=== PATIENT | male | born 1950 | race Caucasian/White ===

== ENCOUNTER 2023-03-03 22:44 | Inpatient (IN) ==
[2023-03-03 23:03] VITALS: BMI 36.5
--- NOTE | 2023-03-03 23:08 | DR.SOBA ---
HPI Time Seen Time Seen by Provider: 03/03/23 23:07 Primary Care Physician Primary Care Physician: SILVINA Complaints Chief Complaint Doctors Comments: Patient has COPD and states that he has been coughing up yellow sputum for several months. Patient has been feeling sob for 3 days and has had a headache.He went to the [facility] house for coffee and became acutely sob.He was given a neb treatment by ems. Patient has chronic lesions and swelling in his legs.30 yrs ago he dropped a piece of steel on his RLE and is supposed to see A vascular surgeon in [place]. Patient's physician Dr Daly referred him to Dr Cartagena in [place] (an orthopedic surgeon) who has referred patient to a vascular surgeon. Patient denies: chest pain,back pain,abdl pain,n ,v. Chief Complaint:: PT IN ED VIA STRETCHER PER [facility] WITH C/O SHORTNESS OF BREATH. PER PT AND , PT HAS A HX OF COPD AND HIS BREATHING HAS GRADUALLY BEEN GETTING WORSE OVER THE PAST COUPLE OF WEEKS. PT STARTED ON OZEMPIC TODAY AND MOWED GRASS TODAY. COVID-19 Coronavirus risk:travel/contact w/high risk person: No Has patient experienced Coronavirus symptoms: No Source History Provided: Patient and Family Member Mode of Arrival Mode of Arrival: Stretcher Timing Onset of Chief Complaint: 03/03/23 PMH PMH Past Medical History: Yes Past Medical History: COPD, Diabetes and Dyslipidemia Past Surgical History: Yes Surgical History: Ortho Surgery Past Surgical History Comment: LEFT HIP BILATERAL CATARACT Family History History of Family Medical Conditions: Yes Family Medical History: Diabetes Mellitus, Cancer, OR, Coronary Artery Disease, Heart Failure and Hypertension Social History Does patient currently use any type of tobacco product: No Have you used tobacco products in the last 12 months: No Type of Tobacco Use: None Does any household member use tobacco: No Alcohol Use: None Do you use any recreational Drugs:: No Lives With: Spouse Lives Where: Home Travel Risk Coronavirus risk:travel/contact w/high risk person: No Has patient experienced Coronavirus symptoms: No Infectious screening In the last 2 months have you had wt loss of >10#?: NO Have you had fever, night sweats or hemotysis?: No Have you traveled outside the country in the last 6 months?: No Isolation: Standard ROS Review of Systems Constitutional: negative Chills, Diaphoresis or Fever Eyes: No Symptoms Reported ENTM: No Symptoms Reported Respiratoy: Productive Cough (yellow sputum x several months) and Short of Breath; negative Wheezing Cardiovascular: No Symptoms Reported and Edema (Chronic in bilateral lower extremities and stasis ulcers BLE) Gastrointestinal/Abdominal: No Symptoms Reported Genitourinary: No Symptoms Reported Neurological: No Symptoms Reported Musculoskeletal: No Symptoms Reported Integumentary: No Symptoms Reported and Lesions (BLE Venous Stasis with ulcerated lesions ) Hematologic/Lymphatic: No Symptoms Reported Endocrine: No Symptoms Reported Psychiatric: No Symptoms Reported All Other Systems: Reviewed and Negative PE Vital Signs Vitals: Temperature 98.4 F Pulse Rate 86 Respiratory Rate 24 Blood Pressure [Right Arm] 143/70 Blood Pressure 199/89 O2 Sat by Pulse Oximetry 97 General Limitations: No Limitations General Appearance: Alert and In No Apparent Distress Head Head Exam: Normal Inspection Eyes Eye exam: Normal Appearance ENT ENT Exam: Normal Exam Neck Neck Exam: Normal Inspection Chest Chest Inspection: Normal Inspection Respiratory Respiratory Exam: negative Normal Lung Sounds Bilat (diminished BS diffusely) Respiratory Exam: Bilateral: Decreased Breath Sounds Cardiovascular Cardiovascular Exam: Regular Rate and Normal Rhythm Abdominal Exam Abdominal Exam: Normal Inspection, Normal Bowel Sounds and Soft Extremities Extremities Exam: Edema (Changes c/w venous stasis BLE) Back Back Exam: Normal Inspection Neurologic Neurological Exam: Alert and Oriented X3 Psychiatric Psychiatric Exam: Normal Affect and Normal Mood Skin Skin Exam: Warm, Dry, Intact and Normal Color MDM Differential Diagnosis Differential Diagnosis: CHF, COPD, Dysrhythmia, Mycardial Infarction and Pneumonia COURSE Treatment Treatment: Patient was brought to a monitored room and IV access was initiated.Patient's ABG Ph 7.4/PC02 53/P02 49/HC03 34.4 (RA). He was placed on a venturi mask at 30% current 02 sat is 97%. Patient received: duonebs x 2( 1st in the field/2nd in the ED), solumderol 125mg iv.Patient's CXR did not reveal an acute proccess but he will be given levaquin 750mg iv in the ED x 1 dose for his cough productive of yellow sputum. Patient has stasis ulcers on his BLE clindamycin ,doxycycline, and gabapentin. Wound cultures are pending.Discussed case with Dr Hairston who will admit patient to his service. Patient's EKG and troponin were negative for acute ischemia. ROR Labs Reviewed Laboratory Results Reviewed?: Yes Result Diagrams: 03/08/23 05:23 03/08/23 05:23 Laboratory: 03/03/23 23:40 Blood Blood Culture - Final 03/03/23 23:30 Blood Blood Culture - Final 03/04/23 02:00 Leg - Right Wound Gram Stain - Final 03/04/23 02:00 Leg - Right Wound Culture - Final Staphylococcus Aureus WBC 6.9 X10^3/uL (3.6-10.0) 03/03/23 23:30 RBC 4.29 X10^6/uL (4.7-6.0) L 03/03/23 23:30 Hgb 13.0 g/dL (13.5-18.0) L 03/03/23 23:30 Hct 38.2 % (42.0-54.0) L 03/03/23 23:30 MCV 89.0 fL (80.0-100.0) 03/03/23 23: MCH 30.3 pg (27.0-34.0) 03/03/23 23: MCHC 34.1 g/dL (33.0-35.0) 03/03/23 23:30 RDW 14.0 % (11.6-16.5) 03/03/23 23:30 Plt Count 133 X10^3/uL (150.0-450.0) L 03/03/23 23:30 MPV 8.7 fL (7.4-11.0) 03/03/23 23:30 Neut % (Auto) 81.9 % (42.0-75.0) H 03/03/23 23:30 Lymph % (Auto) 8.8 % (21.0-51.0) L 03/03/23 23:30 Ness % (Auto) 6.0 % (0.0-13.0) 03/03/23 23:30 Eos % (Auto) 2.9 % (0.9-2.9) 03/03/23 23:30 Baso % (Auto) 0.4 % (0.2-1.0) 03/03/23 23:30 Neut # (Auto) 5.6 x10^3/uL (2.2-4.8) H 03/03/23 23:30 Lymph # (Auto) 0.6 X10^3/uL (1.3-2.9) L 03/03/23 23:30 Ness # (Auto) 0.4 x10^3/uL (0.3-0.8) 03/03/23 23:30 Eos # (Auto) 0.2 x10^3/uL (0.0-0.2) 03/03/23 23:30 Baso # (Auto) 0.0 X10^3/uL (0.0-0.1) 03/03/23 23:30 Absolute Nucleated RBC 0.1 /100WBC 03/03/23 23:30 Sample Site R brachial 03/03/23 23:39 ABG pH 7.420 (7.35-7.45) 03/03/23 23:39 ABG pCO2 53.0 mmHg (35.0-45.0) H* 03/03/23 23:39 ABG pO2 49.0 mmHg (80.0-100.0) L* 03/03/23 23:39 ABG HCO3 34.4 mmol/L (22-26) H* 03/03/23 23:39 ABG O2 Saturation 85.0 % (90-100) L 03/03/23 23:39 ABG Base Excess 8.4 mmol/L (-2.0-2.0) H 03/03/23 23:39 Troy Test N/a 03/03/23 23:39 A-a Gradient 34.0 mmHg 03/03/23 23:39 FiO2 21.0 03/03/23 23:39 Blood Gas Comments Yodit well 03/03/23 23:39 Sodium 143 mmol/L (136-145) 03/03/23 23:30 Corrected Sodium 144 mmol/L (136-145) 03/03/23 23:30 Potassium 4.0 mmol/L (3.5-5.1) 03/03/23 23:30 Chloride 103 mmol/L (98-107) 03/03/23 23:30 Carbon Dioxide 35.6 mmol/L (21-32) H 03/03/23 23:30 BUN 33 mg/dL (7-18) H 03/03/23 23:30 Creatinine 1.39 mg/dL (0.70-1.30) H 03/03/23 23:30 Est GFR (MDRD) Af Amer > 60 (>60) 03/03/23 23:30 Est GFR (MDRD) Non-Af 53 (>60) L 03/03/23 23:30 Glucose 144 mg/dL (65-99) H 03/03/23 23:30 Lactic Acid 0.6 mmol/L (0.4-2.0) 03/03/23 23:30 Calcium 9.2 mg/dL (8.5-10.1) 03/03/23 23: Corrected Calcium TNP 03/03/23 23:30 Total Bilirubin 0.70 mg/dL (0.2-1.0) 03/03/23 23:30 AST 23 Units/L (15-37) 03/03/23 23:30 ALT 26 Units/L (12-78) 03/03/23 23:30 Alkaline Phosphatase 98 Units/L (46-116) 03/03/23 23: Creatine Kinase 118 Units/L (39-308) 03/03/23 23: Troponin I High Sens 27.1 ng/L (4.0-60.0) 03/03/23 23:30 C-Reactive Protein 14.10 mg/L (0-3.0) H 03/03/23 23:30 B-Natriuretic Peptide 63.5 pg/mL (0-79) 03/03/23 23: Total Protein 7.4 g/dL (6.4-8.2) 03/03/23 23:30 Albumin 3.6 g/dL (3.4-5.0) 03/03/23: Globulin 3.8 g/dL (2.5-4.5) 03/03/23 23:30 Albumin/Globulin Ratio 0.9 Ratio (1.1-2.1) L 03/03/23 23:30 XRAY XRAY Interpreted by: Self X-ray Results: CXR: hyperinflation,no acute cardiopulmonary process EKG Compared to prior EKG Dated: 03/03/23 Rate: 66 Rhythm: Afib and PVCs Opioid Opioid Risk Tool Age ([place] box if 16-45): No History of Preadolescent Sexual Abuse: No Total: 0 Total Score Risk Category: Low Risk Copyright: Sheldon GARCIA predicting aberrant behaviors Discharge Plan Diagnosis Discharge Problem: Hypoxemia, COPD exacerbation, Venous stasis of both lower extremities Discharge Plan Patient Disposition: ADMITTED INPATIENT Condition: Stable
[2023-03-03] MEDS ORDERED: CATAPRES TAB 0.1 MG PO ONE (23:19)
[2023-03-03] MEDS ORDERED: DUONEB 0.5 MG/3 MG (3 mL) NEB ONE (23:19)
[2023-03-03] MEDS ORDERED: SOLU-Medrol 125 MG VIAL IVP ONE (23:19)
[2023-03-03] MEDS ORDERED: SOLU-Medrol 125 MG VIAL ONE (23:39)
[2023-03-03] MEDS ORDERED: CATAPRES TAB 0.1 MG ONE (23:39)
[2023-03-03 23:43] LABS: ABG BASE EXCESS 8.4 mmol/L (-2.0-2.0)
[2023-03-03 23:46] LABS: ABG HCO3 34.4 mmol/L (22-26)
[2023-03-03 23:59] LABS: BASOPHILS % (AUTO) 0.4 % (0.2-1.0); EOSINOPHILS # (AUTO) 0.2 x10^3/uL (0.0-0.2); EOSINOPHILS % (AUTO) 2.9 % (0.9-2.9); HEMATOCRIT 38.2 % (42.0-54.0); LYMPHOCYTES # (AUTO) 0.6 X10^3/uL (1.3-2.9); LYMPHOCYTES % (AUTO) 8.8 % (21.0-51.0); MEAN CORPUSCULAR HEMOGLOBIN 30.3 pg (27.0-34.0); MEAN CORPUSCULAR HGB CONC 34.1 g/dL (33.0-35.0); MEAN PLATELET VOLUME 8.7 fL (7.4-11.0); MONOCYTES # (AUTO) 0.4 x10^3/uL (0.3-0.8); NEUTROPHILS # (AUTO) 5.6 x10^3/uL (2.2-4.8); NEUTROPHILS % (AUTO) 81.9 % (42.0-75.0); RED BLOOD COUNT 4.29 X10^6/uL (4.7-6.0); WHITE BLOOD COUNT 6.9 X10^3/uL (3.6-10.0)
--- NOTE | 2023-03-04 | EKG ---
Test Reason : sob Blood Pressure : */* mmHG Vent. Rate : 66 BPM Atrial Rate : * BPM P-R Int : * ms QRS Dur : 90 ms QT Int : 392 ms P-R-T Axes : * 19 59 degrees QTc Int : 410 ms Atrial flutter with premature ventricular or aberrantly conducted complexes Abnormal ECG No previous ECGs available Confirmed by Luis E Olson ([id number]) on 03/04/2023 10:26:33 AM Referred By: Confirmed By: Luis E Olson
[2023-03-04] MEDS ORDERED: DUONEB 0.5 MG/3 MG (3 mL) NEB ONE (00:02)
[2023-03-04 00:11] LABS: ALANINE AMINOTRANSFERASE 26 Units/L (12-78); ALBUMIN 3.6 g/dL (3.4-5.0); ALKALINE PHOSPHATASE 98 Units/L (46-116); ASPARTATE AMINO TRANSFERASE 23 Units/L (15-37); BLOOD UREA NITROGEN 33 mg/dL (7-18); CALCIUM 9.2 mg/dL (8.5-10.1); CARBON DIOXIDE 35.6 mmol/L (21-32); CHLORIDE 103 mmol/L (98-107); COR NA(FOR HYPERGLY) 144 mmol/L (136-145); CREATINE KINASE 118 Units/L (39-308); CREATININE 1.39 mg/dL (0.70-1.30); LACTIC ACID 0.6 mmol/L (0.4-2.0); SODIUM 143 mmol/L (136-145); TOTAL PROTEIN 7.4 g/dL (6.4-8.2); eGFR NON BLACK RACES 53 (>60)
[2023-03-04] MEDS ORDERED: LEVAQUIN PREMIX IV 750 MG 750 MG/150 ML BAG IV ONE ×2 (02:06→02:14)
[2023-03-04] MEDS ORDERED: PROVENTIL NEB TX 0.083% 2.5MG/ 3ML NEB PRN ×2 (04:05→06:15)
[2023-03-04] MEDS ORDERED: IPRATROPIUM INH PRN (04:19)
[2023-03-04] MEDS ORDERED: DUONEB 0.5 MG/3 MG (3 mL) NEB PRN (04:19)
[2023-03-04] MEDS ORDERED: CLINDAMYCIN HCL 300 MG PO SCH (04:19)
[2023-03-04] MEDS ORDERED: ALBUTEROL INH PRN (04:19)
[2023-03-04] MEDS ORDERED: HYDROCODONE ACETAMINOPHEN PO PRN (04:19)
--- NOTE | 2023-03-04 06:03 | EKG ---
Test Reason : sob Blood Pressure : */* mmHG Vent. Rate : 71 BPM Atrial Rate : 71 BPM P-R Int : 150 ms QRS Dur : 86 ms QT Int : 410 ms P-R-T Axes : 75 39 69 degrees QTc Int : 445 ms Suspicious for atrial flutter with variable block Otherwise normal ECG Confirmed by Luis E Olson ([id number]) on 03/04/2023 10:25:55 AM Referred By: Confirmed By: Luis E Olson
[2023-03-04] MEDS: SOLU-Medrol 125 MG VIAL IVP SCH ×3 (06:12→21:03)
[2023-03-04 06:42] LABS: BASOPHILS % (AUTO) 0.3 % (0.2-1.0); EOSINOPHILS % (AUTO) 0.3 % (0.9-2.9); HEMATOCRIT 38.7 % (42.0-54.0); HEMOGLOBIN 13.1 g/dL (13.5-18.0); LYMPHOCYTES # (AUTO) 0.2 X10^3/uL (1.3-2.9); LYMPHOCYTES % (AUTO) 2.8 % (21.0-51.0); MEAN CORPUSCULAR HEMOGLOBIN 30.3 pg (27.0-34.0); MEAN CORPUSCULAR HGB CONC 33.8 g/dL (33.0-35.0); MEAN CORPUSCULAR VOLUME 89.8 fL (80.0-100.0); MEAN PLATELET VOLUME 9.1 fL (7.4-11.0); MONOCYTES # (AUTO) 0.1 x10^3/uL (0.3-0.8); MONOCYTES % (AUTO) 1.1 % (0.0-13.0); NEUTROPHILS # (AUTO) 6.6 x10^3/uL (2.2-4.8); NEUTROPHILS % (AUTO) 95.5 % (42.0-75.0); RED BLOOD COUNT 4.31 X10^6/uL (4.7-6.0); RED CELL DISTRIBUTION WIDTH 13.7 % (11.6-16.5); WHITE BLOOD COUNT 6.9 X10^3/uL (3.6-10.0)
[2023-03-04 06:55] LABS: ALANINE AMINOTRANSFERASE 25 Units/L (12-78); ALBUMIN 3.2 g/dL (3.4-5.0); ALKALINE PHOSPHATASE 95 Units/L (46-116); ASPARTATE AMINO TRANSFERASE 21 Units/L (15-37); BLOOD UREA NITROGEN 31 mg/dL (7-18); CALCIUM 8.9 mg/dL (8.5-10.1); CARBON DIOXIDE 33.2 mmol/L (21-32); CHLORIDE 100 mmol/L (98-107); COR CA(FOR HYPOALB) 9.5 mg/dL (8.5-10.1); COR NA(FOR HYPERGLY) 144 mmol/L (136-145); CREATINE KINASE 116 Units/L (39-308); SODIUM 140 mmol/L (136-145); TOTAL PROTEIN 7.2 g/dL (6.4-8.2); eGFR NON BLACK RACES 58 (>60)
[2023-03-04 07:08] LABS: BILIRUBIN,URINE NEGATIVE (NEGATIVE); BLOOD/HEMOGLOBIN,URINE 4+ (NEGATIVE); GLUCOSE, URINE 3+ (NEGATIVE); KETONES,URINE 3+ (NEGATIVE); LEUKOCYTE ESTERASE ,URINE NEGATIVE (NEGATIVE); NITRITES,URINE NEGATIVE (NEGATIVE); PROTEIN,URINE 3+ (NEGATIVE); UROBILINOGEN,URINE NORMAL (NORMAL)
[2023-03-04 07:11] LABS: APPEARANCE,URINE CLEAR (CLEAR); BACTERIA,URINE NEGATIVE /HPF (NEGATIVE); COLOR,URINE YELLOW (YELLOW); SQUAMOUS EPITHELIAL CELL,UR RARE /HPF (NEGATIVE)
[2023-03-04 07:25] LABS: BAND NEUTROPHILS % 8 % (0-10); BASOPHILS % (MANUAL) 1 % (0-1)
[2023-03-04 07:26] LABS: PLATELET MORPHOLOGY COMMENT NORMAL (NORMAL)
--- NOTE | 2023-03-04 07:33 | RAD ---
HISTORYShortness of breathSTUDYChest AP portableCOMPARISONNone availableFINDINGSHeart is enlarged. No congestive heart failure is noted. Aorta is calcified. Lungs are mildly hyperinflated but free of acute infiltrates. No pleural effusions or pneumothoraces identified. Bony thorax is unremarkable.IMPRESSIONCardiomegaly without congestive heart failureLungs hyperinflated but clear.Electronically signed by: LUPE CONTI (Mar 04, 2023 07:32:22)
[2023-03-04] MEDS ORDERED: PROVENTIL NEB TX 0.083% 2.5MG/ 3ML ONE (07:54)
[2023-03-04] MEDS ORDERED: Atrovent NEB TX 0.02% ONE (07:54)
[2023-03-04] MEDS ORDERED: PULMICORT NEB TX 0.5 MG NEB ONE (07:54)
[2023-03-04] MEDS: Atrovent NEB TX 0.02% NEB SCH ×4 (08:24→21:00)
[2023-03-04] MEDS: PROVENTIL NEB TX 0.083% 2.5MG/ 3ML NEB SCH ×4 (08:24→21:00)
[2023-03-04] MEDS: PULMICORT NEB TX 0.5 MG NEB SCH ×2 (08:24→21:00)
[2023-03-04] MEDS ORDERED: SITAGLIPTIN PHOSPHATE 50 MG PO SCH (09:00)
[2023-03-04] MEDS ORDERED: ASPIRIN EC 81 MG PO SCH (09:00)
[2023-03-04] MEDS ORDERED: CLEOCIN PO SCH (09:00)
[2023-03-04] MEDS ORDERED: TIOTROPIUM BROMIDE IN SCH (09:00)
[2023-03-04] MEDS ORDERED: [UNRECOGNIZED DRUG - OTHER] IN SCH (09:00)
[2023-03-04] MEDS ORDERED: VIBRAMYCIN PO SCH (09:00)
[2023-03-04] MEDS ORDERED: SPIRIVA HANDIHALER (30 DOSE) IN SCH (09:00)
[2023-03-04] MEDS ORDERED: BUDESONIDE FORMOTEROL IN SCH (09:00)
[2023-03-04] MEDS: NEURONTIN CAP 400 MG PO SCH ×3 (09:00→09:12)
[2023-03-04] MEDS: ACTOS PO SCH (09:01)
[2023-03-04] MEDS: JANUVIA PO SCH (09:02)
[2023-03-04] MEDS: IRBESARTAN PO SCH (09:04)
[2023-03-04] MEDS: [UNRECOGNIZED DRUG - OTHER] PO SCH (09:04)
[2023-03-04] MEDS: HYDROCHLOROTHIAZIDE PO SCH (09:04)
[2023-03-04] MEDS ORDERED: NS 100 ML IV 100 ML ONE (11:08)
[2023-03-04] MEDS: ZOSYN VIAL 3.375 GRAMS 3.375 G in NS 100 ML IV 100 ML IV SCH ×3 (11:10→21:17)
[2023-03-04] MEDS: NovoLIN R (or HumuLIN R) SUBCUT PRN ×3 (11:23→20:34)
--- NOTE | 2023-03-04 11:57 | EKG ---
Test Reason : sob Blood Pressure : */* mmHG Vent. Rate : 73 BPM Atrial Rate : * BPM P-R Int : * ms QRS Dur : 86 ms QT Int : 418 ms P-R-T Axes : * 39 81 degrees QTc Int : 460 ms Atrial fibrillation Abnormal ECG When compared with ECG of 04-MAR-2023 05:30, Previous ECG has undetermined rhythm, needs review Confirmed by Luis E Olson ([id number]) on 03/06/2023 2:28:04 PM Referred By: Confirmed By: Luis E Olson
[2023-03-04] MEDS ORDERED: FIORICET TAB PO PRN (16:57)
[2023-03-04] MEDS: SNACK - Diabetic Appropriate PO SCH (20:40)
[2023-03-04] MEDS: AMARYL TAB 4 MG PO SCH (20:59)
[2023-03-04] MEDS: ZOCOR TAB 40 MG PO SCH (20:59)
[2023-03-04] MEDS: LASIX PO PRN (20:59)
[2023-03-04] MEDS ORDERED: GLIMEPIRIDE 4 MG PO SCH (21:00)
[2023-03-04] MEDS ORDERED: SIMVASTATIN 20 MG PO SCH (21:00)
--- NOTE | 2023-03-04 22:55 | DR.H&P ---
H&P - History & Physical for Day of: H&P Date: 03/04/23 - Chief Complaint Chief Complaint: COUGH, SOB - History of Present Illness History of Present Illness: IS A 73 YEAR OLD PATIENT OF OURS. HE PRESENTED TO THE ER VIA EMS WITH COMPLAINTS OF PRODUCTIVE COUGH, SHORTNESS OF BREATH, AND HEADACHE X 3 DAYS. HE DENIES CHEST PAIN, BACK PAIN, ABDOMINAL PAIN, OR NAUSEA AND VOMITING. HE HAS A PMH OF HTN, COPD, DM II, DYSLIPIDEMIA, LEFT HIP REPLACEMENT, AND BILATERAL CATARACT SURGERY. HE ADMITS TO STARTING OZEMPIC TODAY. ON EMS ARRIVAL, THEY ADMINISTERED A NEBULIZER TREATMENT. ON ARRIVAL TO THE ER, HIS VITALS WERE 98.4-89-24-100%-146/88. HE WAS PLACED ON A NON- REBREATHER AT 100%. LABS WERE OBTAINED. WBC 6.9, RBC 4.29, HGB 13, HCT 38.2, PLT COUNT 133, SODIUM 143, POTASSIUM 4.0, CHLORIDE 103, CARBON DIOXIDE 35.6, BUN 33, CREATININE 1.39, GLUCOSE 144, LACTIC ACID 0.6, CALCIUM 9.2, TOTAL BILI 0.70, AST 23, ALT 26, ALK PHOS 98, CREATINE KINASE 118, TROPONIN 27.1, CRP 14.10, BNP 63.5, TOTAL PROTEIN 7.4, ALBUMIN 3.6, GLOBULIN 3.8. URINALYSIS WAS OBTAINED AND REVEALED: WBC 0-2, RBC 10-20, BACTERIA NEGATIVE, LEUKOCYTES NEGATIVE. AN ABG WAS OBTAINED AND REVEALED: PH 7.420, PC02 53, P02 49, HC03 34.4, 02 SATURATION 85, BASE EXCESS 8.4, A-A GRADIENT 34, FI02 21.0. A CHEST XRAY WAS OBTAINED AND REVEALED: Heart is enlarged. No congestive heart failure is noted. Aorta is calcified. Lungs are mildly hyperinflated but free of acute infiltrates. No pleural effusions or pneumothoraces identified. Bony thorax is unremarkable. EKG REVEALED: ATRIAL FLUTTER WITH PVCs. HR 66. IN THE ER, HE WAS GIVEN CATAPRES 0.1MG, SOLU-MEDROL 125MG IV X 1 DOSE, DUONEB X 1, AND LEVAQUIN 750MG IV X 1. HE WAS ADMITTED TO THE HOSPITAL INPATIENT STATUS FOR FURTHER EVALUATION AND TREATMENT OF COPD WITH ACUTE BRONCHITIS, RESPIRATORY FAILURE WITH HYPERCAPNIA AND HYPOXIA, SHORTNESS OF BREATH, DM II, HTN, AND DYSLIPIDEMIA. HE WAS STARTED ON ZOSYN 3.375G IV TID, LEVAQUIN 750MG IV DAILY, SOLU-MEDROL 80MG IV Q8H, PROVENTIL NEBS Q4H, PULMICORT NEBS BID, ATROVENT NEBS Q4H, OTBS ACHS, HUMULIN R SLIDING SCALE, FIORICET 1 TAB PO Q6H PRN, ECOTRIN 81MG HS, LASIX 20MG PO DAILY PRN, NEURONTIN 400MG DAILY, AMARYL 4MG HS, ACTOS 30MG DAILY, SIMVASTATIN 40MG HS, JANUVIA 100MG DAILY. OTHERWISE, WE PLAN TO FOLLOW-UP WITH AM LABS AND CHEST XRAY AND CONTINUE TO MONITOR. TIME SPENT ON CLINICAL ASSESSMENT, REVIEWING LABS AND IMAGING, DECISION MAKING, AND DOCUMENTATION GREATER THAN 75 MINUTES. - Past Medical History Past Medical History: Dyslipidemia, Diabetes, COPD - Past Surgical History Surgical History: Ortho Surgery - Family History Family Medical History: Diabetes Mellitus, Cancer, [place], Hypertension - Social History Does patient currently use any type of tobacco product: No Have you used tobacco products in the last 12 months: No Type of Tobacco Use: None Does any household member use tobacco: No Alcohol Use: None Drug Use: None - Medications Home Medications: No Known Drug Allergies Allergy (Verified 11/28/18 02:16) CONTINUE taking the following medications fluticasone fur. 100 mcg-umeclid 62.5 mcg-vilant 25 mcg inhalat.powder (Trelegy Ellipta) 1 inh inhalation QDAY 03/04/23 [History] furosemide 20 mg tablet 20 mg PO QHS 03/04/23 [History] ipratropium 20 mcg-albuterol 100 mcg/actuation mist for inhalation (Combivent Respimat) 1 spray inhalation QD-BID 03/04/23 [History] irbesartan 150 mg-hydrochlorothiazide 12.5 mg tablet 1 tab PO QDAY 03/04/23 [History] meloxicam 15 mg tablet 15 mg PO QDAY 03/04/23 [History] mupirocin 2 % topical ointment 1 applic topical BID-TID 03/04/23 [History] pioglitazone 30 mg tablet 30 mg PO QDAY 03/04/23 [History] semaglutide 0.25 mg or 0.5 mg (2 mg/1.5 mL) subcutaneous pen injector (Ozempic) 1 ea subcut WEEKLY 03/04/23 [History] simvastatin 40 mg tablet 40 mg PO QPM 03/04/23 [History] - Review of Systems Constitutional: Weakness Eyes: No Symptoms Reported ENT: No Symptoms Reported Respiratory: Cough, Shortness of Breath, SOB with Excertion, Wheezing Cardiovascular: No Symptoms Reported Gastrointestinal: No Symptoms Reported Genitourinary: No Symptoms Reported Musculoskeletal: No Symptoms Reported Skin: No Symptoms Reported Neurological: Weakness - Physical Exam Vital Signs: Temperature 98.0 F Pulse Rate [Left] 68 Pulse Rate 68 Respiratory Rate 18 Blood Pressure [Right Arm] 145/72 Blood Pressure 189/67 O2 Sat by Pulse Oximetry 96 Oriented: Normal Eyes: Normal Ear: Normal Nose: Normal Throat: Normal Respiratory: Wheezes Throughout Cardiovascular: Normal : Normal Auscultation: Bowel Sounds: Normal Palpation: Normal Tenderness: Normal Skin: Normal Musculoskeletal: Normal Psychiatric: Normal Mood Description: Calm Affect: Normal Speech Pattern: Clear - Assessment/Plan (1) COPD exacerbation Status: Acute Plan: ADMIT, ZOSYN 3.375G IV TID, LEVAQUIN 750MG IV DAILY, SOLU-MEDROL 80MG IV Q8H, PROVENTIL NEBS Q4H, PULMICORT NEBS BID, ATROVENT NEBS Q4H, OTBS ACHS, HUMULIN R SLIDING SCALE, FIORICET 1 TAB PO Q6H PRN, ECOTRIN 81MG HS, LASIX 20MG PO DAILY PRN, NEURONTIN 400MG DAILY, AMARYL 4MG HS, ACTOS 30MG DAILY, SIMVASTATIN 40MG HS, JANUVIA 100MG DAILY. (2) Acute bronchitis Qualifiers: Bronchitis organism: unspecified organism Qualified Code(s): J20.9 - Acute bronchitis, unspecified Status: Acute (3) Respiratory failure with hypoxia and hypercapnia Qualifiers: Chronicity: acute Qualified Code(s): J96.01 - Acute respiratory failure with hypoxia; J96.02 - Acute respiratory failure with hypercapnia; J96.02 - Ac [place] respiratory failure with hypercapnia Status: Acute (4) Hyperlipidemia Qualifiers: Hyperlipidemia type: mixed hyperlipidemia Qualified Code(s): E78.2 - Mixed hyperlipidemia Status: Chronic (5) Diabetes mellitus Qualifiers: Diabetes mellitus type: type 2 Diabetes mellitus snf insulin use: with snf use Diabetes mellitus complication status: with other specified complication Qualified Code(s): E11.69 - Type 2 diabetes mellitus with other specified complication; Z79.4 - shelter (current) use of insulin Status: Chronic (6) Hypertension Qualifiers: Hypertension type: primary hypertension Qualified Code(s): I10 - Essential (primary) hypertension Status: Chronic - Allergies Allergies/Adverse Reactions: Allergies Allergy/AdvReac Type Severity Reaction Status Date / Time No Known Drug Allergies Allergy Verified 11/28/18 02:16
[2023-03-05] MEDS: Atrovent NEB TX 0.02% NEB SCH ×6 (01:00→21:00)
[2023-03-05] MEDS: PROVENTIL NEB TX 0.083% 2.5MG/ 3ML NEB SCH ×6 (01:00→21:00)
[2023-03-05] MEDS: LEVAQUIN PREMIX IV 750 MG 750 MG/150 ML BAG IV SCH (01:24)
[2023-03-05] MEDS: SOLU-Medrol 125 MG VIAL IVP SCH ×2 (05:28→20:27)
[2023-03-05] MEDS: ZOSYN VIAL 3.375 GRAMS 3.375 G in NS 100 ML IV 100 ML IV SCH ×3 (05:29→21:33)
[2023-03-05] MEDS: NovoLIN R (or HumuLIN R) SUBCUT PRN ×3 (05:40→20:29)
[2023-03-05 05:52] LABS: BASOPHILS % (AUTO) 0 % (0.2-1.0); HEMATOCRIT 35.1 % (42.0-54.0); HEMOGLOBIN 11.8 g/dL (13.5-18.0); LYMPHOCYTES # (AUTO) 0.3 X10^3/uL (1.3-2.9); LYMPHOCYTES % (AUTO) 2.2 % (21.0-51.0); MEAN CORPUSCULAR HGB CONC 33.7 g/dL (33.0-35.0); MEAN CORPUSCULAR VOLUME 89.1 fL (80.0-100.0); MONOCYTES # (AUTO) 0.4 x10^3/uL (0.3-0.8); MONOCYTES % (AUTO) 2.9 % (0.0-13.0); NEUTROPHILS # (AUTO) 13.2 x10^3/uL (2.2-4.8); NEUTROPHILS % (AUTO) 94.9 % (42.0-75.0); RED BLOOD COUNT 3.94 X10^6/uL (4.7-6.0); RED CELL DISTRIBUTION WIDTH 13.9 % (11.6-16.5); WHITE BLOOD COUNT 13.9 X10^3/uL (3.6-10.0)
[2023-03-05 06:05] LABS: ALBUMIN 2.9 g/dL (3.4-5.0); CALCIUM 8.4 mg/dL (8.5-10.1); CARBON DIOXIDE 32.8 mmol/L (21-32); COR CA(FOR HYPOALB) 9.3 mg/dL (8.5-10.1); CREATININE 2.12 mg/dL (0.70-1.30); TOTAL PROTEIN 6.5 g/dL (6.4-8.2)
[2023-03-05 06:18] LABS: PLATELET MORPHOLOGY COMMENT NORMAL (NORMAL)
[2023-03-05] MEDS: PULMICORT NEB TX 0.5 MG NEB SCH ×2 (08:54→21:00)
[2023-03-05] MEDS: HYDROCHLOROTHIAZIDE PO SCH (10:12)
[2023-03-05] MEDS: ACTOS PO SCH (10:12)
[2023-03-05] MEDS: [UNRECOGNIZED DRUG - OTHER] PO SCH (10:12)
[2023-03-05] MEDS: IRBESARTAN PO SCH (10:12)
[2023-03-05] MEDS: NEURONTIN CAP 400 MG PO SCH (10:13)
[2023-03-05] MEDS: JANUVIA PO SCH (10:13)
--- NOTE | 2023-03-05 11:12 | PCM.PROG ---
Progress Note Progress Note for Day of Date of Exam: 03/05/23 Subjective Subjective: Patient seen at bedside, no acute events overnight. He is currently on 3L NC. He reports some SOB with exertion. He also has chronic leg edema with non-healing ulcers. He has been admitted for acute respiratory failure due to bronchitis and leg wound. Labs/imaging: Hgb 11.8 WBC 13.8 BUN/Cr 54/2.12 Resp panel pending CXR: cardiomegaly Leg wound Cx: staph coag + Plan: continue IV Zosyn and Levaquin. Wean O2 as tolerated. Follow pending cultures. Continue wound care. Advised to keep legs elevated. Will decrease solumedrol. Continue home medications, will hold irbesartan-hctz due to TANA. Monitor BP. Monitor AM labs/imaging. Past Medical Family Social History Allergies: Allergies No Known Drug Allergies Allergy (Verified 11/28/18 02:16) Vital Signs and I&O's Vital Signs: Temperature 97.7 F Pulse Rate [Left] 52 Pulse Rate 68 Respiratory Rate 18 Blood Pressure [Right Arm] 114/53 Blood Pressure 189/67 O2 Sat by Pulse Oximetry 86 Intake and Output: Intake & Output 03/02/23 03/03/23 03/04/23 03/05/23 23:59 23:59 23:59 23:59 Intake Total 353 / 353 464 / 464 Output Total 100 / 100 Balance 253 / 253 464 / 464 Physical Exam Oriented: Normal Eyes: Normal Ear: Normal Nose: Normal Throat: Normal Respiratory: Generalized and Diminished Cardiovascular: Normal Auscultation: Bowel Sounds: Normal Tenderness: Normal Skin: Other (b/l LE chronic venous stasis with ulcers, some open blisters, b/l erythema noted ) Musculoskeletal: Leg Psychiatric: Normal Mood Description: Calm Affect: Normal Speech Pattern: Clear and Appropriate Laboratory and Diagnostics Result Diagrams: 03/05/23 05:26 03/05/23 05:26 Labs: 03/04/23 02:00 Leg - Right Wound Gram Stain - Final 03/04/23 02:00 Leg - Right Wound Culture - Preliminary Laboratory WBC 13.9 X10^3/uL (3.6-10.0) H 03/05/23 05:26 RBC 3.94 X10^6/uL (4.7-6.0) L 03/05/23 05:26 Hgb 11.8 g/dL (13.5-18.0) L 03/05/23 05:26 Hct 35.1 % (42.0-54.0) L 03/05/23 05:26 MCV 89.1 fL (80.0-100.0) 03/05/23 05:26 MCH 30.0 pg (27.0-34.0) 03/05/23 05:26 MCHC 33.7 g/dL (33.0-35.0) 03/05/23 05:26 RDW 13.9 % (11.6-16.5) 03/05/23 05:26 Plt Count 145 X10^3/uL (150.0-450.0) L 03/05/23 05:26 Plt Count Comment Decreased (ADEQUATE) 03/05/23 05:26 MPV 9.0 fL (7.4-11.0) 03/05/23 05:26 Neut % (Auto) 94.9 % (42.0-75.0) H 03/05/23 05:26 Lymph % (Auto) 2.2 % (21.0-51.0) L 03/05/23 05:26 Edwards % (Auto) 2.9 % (0.0-13.0) 03/05/23 05:26 Eos % (Auto) 0.0 % (0.9-2.9) L 03/05/23 05:26 Baso % (Auto) 0 % (0.2-1.0) L 03/05/23 05:26 Neut # (Auto) 13.2 x10^3/uL (2.2-4.8) H 03/05/23 05:26 Lymph # (Auto) 0.3 X10^3/uL (1.3-2.9) L 03/05/23 05:26 Edwards # (Auto) 0.4 x10^3/uL (0.3-0.8) 03/05/23 05:26 Eos # (Auto) 0.0 x10^3/uL (0.0-0.2) 03/05/23 05:26 Baso # (Auto) 0.0 X10^3/uL (0.0-0.1) 03/05/23 05:26 Absolute Nucleated RBC 0.0 /100WBC 03/05/23 05:26 Total Counted 100 03/05/23 05:26 Neutrophils % (Manual) 96 % (39-76) H 03/05/23 05:26 Band Neutrophils % 8 % (0-10) 03/04/23 05:20 Lymphocytes % (Manual) 2 % (13-43) L 03/05/23 05:26 Monocytes % (Manual) 2 % (4-9) L 03/05/23 05:26 Eosinophils % (Manual) 1 % (0-6) 03/04/23 05:20 Basophils % (Manual) 1 % (0-1) 03/04/23 05:20 Plt Morphology Comment Normal (NORMAL) 03/05/23 05:26 RBC Morphology Normal (NORMAL) 03/05/23 05:26 Sample Site R brachial 03/03/23 23:39 ABG pH 7.420 (7.35-7.45) 03/03/23 23:39 ABG pCO2 53.0 mmHg (35.0-45.0) H* 03/03/23 23:39 ABG pO2 49.0 mmHg (80.0-100.0) L* 03/03/23 23:39 ABG HCO3 34.4 mmol/L (22-26) H* 03/03/23 23:39 ABG O2 Saturation 85.0 % (90-100) L 03/03/23 23:39 ABG Base Excess 8.4 mmol/L (-2.0-2.0) H 03/03/23 23:39 Troy Test N/a 03/03/23 23:39 A-a Gradient 34.0 mmHg 03/03/23 23:39 FiO2 21.0 03/03/23 23:39 Blood Gas Comments Yodit well 03/03/23 23:39 Sodium 138 mmol/L (136-145) 03/05/23 05:26 Corrected Sodium 144 mmol/L (136-145) 03/05/23 05:26 Potassium 4.4 mmol/L (3.5-5.1) 03/05/23 05:26 Chloride 100 mmol/L (98-107) 03/05/23 05:26 Carbon Dioxide 32.8 mmol/L (21-32) H 03/05/23 05:26 BUN 54 mg/dL (7-18) H 03/05/23 05:26 Creatinine 2.12 mg/dL (0.70-1.30) H 03/05/23 05:26 Est GFR (MDRD) Af Amer 40 (>60) L 03/05/23 05:26 Est GFR (MDRD) Non-Af 33 (>60) L 03/05/23 05:26 Glucose 350 mg/dL (65-99) H 03/05/23 05:26 POC Glucose (mg/dL) 324 mg/dL (65-99) H 03/05/23 05:36 Lactic Acid 0.6 mmol/L (0.4-2.0) 03/03/23 23:30 Calcium 8.4 mg/dL (8.5-10.1) L 03/05/23 05:26 Corrected Calcium 9.3 mg/dL (8.5-10.1) 03/05/23 05:26 Total Bilirubin 0.30 mg/dL (0.2-1.0) 03/05/23 05:26 AST 17 Units/L (15-37) 03/05/23 05:26 ALT 21 Units/L (12-78) 03/05/23 05:26 Alkaline Phosphatase 80 Units/L (46-116) 03/05/23 05:26 Creatine Kinase 116 Units/L (39-308) 03/04/23 05:20 Troponin I High Sens 27.5 ng/L (4.0-60.0) 03/04/23 05:20 C-Reactive Protein 14.10 mg/L (0-3.0) H 03/03/23 23:30 B-Natriuretic Peptide 63.5 pg/mL (0-79) 03/03/23 23:30 Total Protein 6.5 g/dL (6.4-8.2) 03/05/23 05:26 Albumin 2.9 g/dL (3.4-5.0) L 03/05/23 05:26 Globulin 3.6 g/dL (2.5-4.5) 03/05/23 05:26 Albumin/Globulin Ratio 0.8 Ratio (1.1-2.1) L 03/05/23 05:26 Specimen Type Clean catch urine 03/04/23 06:20 Urine Color Yellow (YELLOW) 03/04/23 06:20 Urine Appearance Clear (CLEAR) 03/04/23 06:20 Urine pH 6.0 (5.0 - 8.0) 03/04/23 06:20 Ur Specific [place] 1.020 (1.000-1.030) 03/04/23 06:20 Urine Protein 3+ (NEGATIVE) 03/04/23 06:20 Urine Glucose (UA) 3+ (NEGATIVE) 03/04/23 06:20 Urine Ketones 3+ (NEGATIVE) 03/04/23 06:20 Urine Blood 4+ (NEGATIVE) 03/04/23 06:20 Urine Nitrite Negative (NEGATIVE) 03/04/23 06:20 Urine Bilirubin Negative (NEGATIVE) 03/04/23 06:20 Urine Urobilinogen Normal (NORMAL) 03/04/23 06:20 Ur Leukocyte Esterase Negative (NEGATIVE) 03/04/23 06:20 Urine RBC 10-20 /HPF (0-3) A 03/04/23 06:20 Urine WBC 0-2 /HPF (0-5) 03/04/23 06:20 Ur Squamous Epith Cells Rare /HPF (NEGATIVE) 03/04/23 06:20 Urine Bacteria Negative /HPF (NEGATIVE) 03/04/23 06:20 Ur Culture Indicated? No/not indicated 03/04/23 06:20 Plan (1) COPD exacerbation: Status: Acute (2) Acute bronchitis: Status: Acute Qualifiers: Bronchitis organism: unspecified organism Qualified Code(s): J20.9 - Acute bronchitis, unspecified (3) Cellulitis of leg, right: Status: Acute (4) Respiratory failure with hypoxia and hypercapnia: Status: Acute Qualifiers: Chronicity: acute Qualified Code(s): J96.01 - Acute respiratory failure with hypoxia; J96.02 - Acute respiratory failure with hypercapnia; J96.02 - Acute respiratory failure with hypercapnia (5) Hyperlipidemia: Status: Chronic Qualifiers: Hyperlipidemia type: mixed hyperlipidemia Qualified Code(s): E78.2 - Mixed hyperlipidemia (6) Diabetes mellitus: Status: Chronic Qualifiers: Diabetes mellitus complication status: with other specified complication Diabetes mellitus jail insulin use: with terminal superintendent use Diabetes mellitus type: type 2 Qualified Code(s): E11.69 - Type 2 diabetes mellitus with other specified complication; Z79.4 - exterminator (current) use of insulin (7) Hypertension: Status: Chronic Qualifiers: Hypertension type: primary hypertension Qualified Code(s): I10 - Essential (primary) hypertension
[2023-03-05] MEDS: ASPIRIN EC 81 MG PO SCH (20:22)
[2023-03-05] MEDS: ZOCOR TAB 40 MG PO SCH (20:22)
[2023-03-05] MEDS: AMARYL TAB 4 MG PO SCH (20:23)
[2023-03-05] MEDS: SNACK - Diabetic Appropriate PO SCH (21:33)
[2023-03-06] MEDS: PROVENTIL NEB TX 0.083% 2.5MG/ 3ML NEB SCH ×6 (01:15→20:16)
[2023-03-06] MEDS: Atrovent NEB TX 0.02% NEB SCH ×6 (01:15→20:15)
[2023-03-06] MEDS: LEVAQUIN PREMIX IV 750 MG 750 MG/150 ML BAG IV SCH (02:32)
[2023-03-06] MEDS: ZOSYN VIAL 3.375 GRAMS 3.375 G in NS 100 ML IV 100 ML IV SCH (05:30)
[2023-03-06 06:28] LABS: BASOPHILS % (AUTO) 0.1 % (0.2-1.0); HEMATOCRIT 35.7 % (42.0-54.0); LYMPHOCYTES # (AUTO) 0.2 X10^3/uL (1.3-2.9); LYMPHOCYTES % (AUTO) 1.4 % (21.0-51.0); MEAN CORPUSCULAR HEMOGLOBIN 30.1 pg (27.0-34.0); MEAN CORPUSCULAR HGB CONC 33.5 g/dL (33.0-35.0); MEAN CORPUSCULAR VOLUME 89.9 fL (80.0-100.0); MEAN PLATELET VOLUME 9.2 fL (7.4-11.0); MONOCYTES # (AUTO) 0.4 x10^3/uL (0.3-0.8); MONOCYTES % (AUTO) 2.7 % (0.0-13.0); NEUTROPHILS # (AUTO) 12.6 x10^3/uL (2.2-4.8); NEUTROPHILS % (AUTO) 95.8 % (42.0-75.0); RED BLOOD COUNT 3.97 X10^6/uL (4.7-6.0); RED CELL DISTRIBUTION WIDTH 13.9 % (11.6-16.5); WHITE BLOOD COUNT 13.1 X10^3/uL (3.6-10.0)
[2023-03-06 06:41] LABS: CREATININE 2.8 mg/dL (0.70-1.30)
[2023-03-06 06:49] LABS: PLATELET MORPHOLOGY COMMENT NORMAL (NORMAL)
[2023-03-06] MEDS: JANUVIA PO SCH (08:34)
[2023-03-06] MEDS: NEURONTIN CAP 400 MG PO SCH (08:34)
[2023-03-06] MEDS: SOLU-Medrol 125 MG VIAL IVP SCH (08:34)
[2023-03-06] MEDS: ACTOS PO SCH (08:34)
[2023-03-06] MEDS: PULMICORT NEB TX 0.5 MG NEB SCH ×2 (09:12→20:16)
[2023-03-06] MEDS: VIBRAMYCIN 100 MG in D5W 250 ML IV 250 ML IV SCH ×2 (10:57→20:52)
[2023-03-06] MEDS: MILK OF MAGNESIA PO SCH (10:57)
[2023-03-06] MEDS: NS 1,000 ML IV 1,000 ML IV SCH (11:30)
[2023-03-06] MEDS: NovoLIN R (or HumuLIN R) SUBCUT PRN ×3 (11:32→21:02)
--- NOTE | 2023-03-06 11:40 | PCM.PROG ---
Progress Note Progress Note for Day of Date of Exam: 03/06/23 Subjective Subjective: Patient seen at bedside, no acute events overnight. He is currently on 2L NC. He reports not feeling as short of breath with exertion. He also has chronic leg edema with non-healing ulcers. He has been admitted for acute respiratory failure due to bronchitis and leg wound. Labs/imaging: Hgb 12 BUN/Cr 76/2.80 Resp panel pending Leg wound Cx: Staph Plan: Both Zosyn + Levaquin resistant, will switch to Doxycycline. Start NS at 75cc/hr. Taper solumedrol. Wean O2 as tolerated. CXR pending. Continue wound care. Advised to keep legs elevated. Continue home medications, will hold irbesartan-hctz due to TANA. Monitor BP. Monitor AM labs/imaging. Past Medical Family Social History Allergies: Allergies No Known Drug Allergies Allergy (Verified 11/28/18 02:16) Vital Signs and I&O's Vital Signs: Temperature 97.9 F Pulse Rate [Left] 80 Pulse Rate 69 Respiratory Rate 20 Blood Pressure [Right Arm] 112/58 Blood Pressure 189/67 O2 Sat by Pulse Oximetry 97 Intake and Output: Intake & Output 03/03/23 03/04/23 03/05/23 03/06/23 23:59 23:59 23:59 23:59 Intake Total 353 / 353 1284 / 1284 240 / 240 Output Total 100 / 100 300 / 300 Balance 253 / 253 984 / 984 240 / 240 Physical Exam Oriented: Normal Eyes: Normal Ear: Normal Nose: Normal Throat: Normal Respiratory: Generalized and Diminished Cardiovascular: Normal Auscultation: Bowel Sounds: Normal Tenderness: Normal Skin: Other (b/l LE chronic venous stasis with ulcers, some open blisters, b/l erythema noted ) Musculoskeletal: Leg Psychiatric: Normal Mood Description: Calm Affect: Normal Speech Pattern: Clear and Appropriate Laboratory and Diagnostics Result Diagrams: 03/06/23 05:25 03/06/23 05:25 Labs: 03/04/23 02:00 Leg - Right Wound Gram Stain - Final 03/04/23 02:00 Leg - Right Wound Culture - Preliminary Staphylococcus Aureus 03/03/23 23:40 Blood Blood Culture - Preliminary 03/03/23 23:30 Blood Blood Culture - Preliminary Laboratory WBC 13.1 X10^3/uL (3.6-10.0) H 03/06/23 05:25 RBC 3.97 X10^6/uL (4.7-6.0) L 03/06/23 05:25 Hgb 12.0 g/dL (13.5-18.0) L 03/06/23 05:25 Hct 35.7 % (42.0-54.0) L 03/06/23 05:25 MCV 89.9 fL (80.0-100.0) 03/06/23 05:25 MCH 30.1 pg (27.0-34.0) 03/06/23 05:25 MCHC 33.5 g/dL (33.0-35.0) 03/06/23 05:25 RDW 13.9 % (11.6-16.5) 03/06/23 05:25 Plt Count 134 X10^3/uL (150.0-450.0) L 03/06/23 05:25 Plt Count Comment Decreased (ADEQUATE) 03/06/23 05:25 MPV 9.2 fL (7.4-11.0) 03/06/23 05:25 Neut % (Auto) 95.8 % (42.0-75.0) H 03/06/23 05:25 Lymph % (Auto) 1.4 % (21.0-51.0) L 03/06/23 05:25 [place] % (Auto) 2.7 % (0.0-13.0) 03/06/23 05:25 Eos % (Auto) 0.0 % (0.9-2.9) L 03/06/23 05:25 Baso % (Auto) 0.1 % (0.2-1.0) L 03/06/23 05:25 Neut # (Auto) 12.6 x10^3/uL (2.2-4.8) H 03/06/23 05:25 Lymph # (Auto) 0.2 X10^3/uL (1.3-2.9) L 03/06/23 05:25 [place] # (Auto) 0.4 x10^3/uL (0.3-0.8) 03/06/23 05:25 Eos # (Auto) 0.0 x10^3/uL (0.0-0.2) 03/06/23 05:25 Baso # (Auto) 0.0 X10^3/uL (0.0-0.1) 03/06/23 05:25 Absolute Nucleated RBC 0.0 /100WBC 03/06/23 05:25 Total Counted 100 03/06/23 05:25 Neutrophils % (Manual) 97 % (39-76) H 03/06/23 05:25 Band Neutrophils % 8 % (0-10) 03/04/23 05:20 Lymphocytes % (Manual) 1 % (13-43) L 03/06/23 05:25 Monocytes % (Manual) 2 % (4-9) L 03/06/23 05:25 Eosinophils % (Manual) 1 % (0-6) 03/04/23 05:20 Basophils % (Manual) 1 % (0-1) 03/04/23 05:20 Plt Morphology Comment Normal (NORMAL) 03/06/23 05:25 RBC Morphology Normal (NORMAL) 03/06/23 05:25 Sample Site R brachial 03/03/23 23:39 ABG pH 7.420 (7.35-7.45) 03/03/23 23:39 ABG pCO2 53.0 mmHg (35.0-45.0) H* 03/03/23 23:39 ABG pO2 49.0 mmHg (80.0-100.0) L* 03/03/23 23:39 ABG HCO3 34.4 mmol/L (22-26) H* 03/03/23 23:39 ABG O2 Saturation 85.0 % (90-100) L 03/03/23 23:39 ABG Base Excess 8.4 mmol/L (-2.0-2.0) H 03/03/23 23:39 [place] Test N/a 03/03/23 23:39 A-a Gradient 34.0 mmHg 03/03/23 23:39 FiO2 21.0 03/03/23 23:39 Blood Gas Comments Yodit well 03/03/23 23:39 Sodium 137 mmol/L (136-145) 03/06/23 05:25 Corrected Sodium 143 mmol/L (136-145) 03/06/23 05:25 Potassium 4.7 mmol/L (3.5-5.1) 03/06/23 05:25 Chloride 99 mmol/L (98-107) 03/06/23 05:25 Carbon Dioxide 31.0 mmol/L (21-32) 03/06/23 05:25 BUN 76 mg/dL (7-18) H 03/06/23 05:25 Creatinine 2.80 mg/dL (0.70-1.30) H 03/06/23 05:25 Est GFR (MDRD) Af Amer 29 (>60) L 03/06/23 05:25 Est GFR (MDRD) Non-Af 24 (>60) L 03/06/23 05:25 Glucose 357 mg/dL (65-99) H 03/06/23 05:25 POC Glucose (mg/dL) 229 mg/dL (65-99) H 03/06/23 11:04 Lactic Acid 0.6 mmol/L (0.4-2.0) 03/03/23 23:30 Calcium 8.0 mg/dL (8.5-10.1) L 03/06/23 05:25 Corrected Calcium 9.3 mg/dL (8.5-10.1) 03/05/23 05:26 Total Bilirubin 0.30 mg/dL (0.2-1.0) 03/05/23 05:26 AST 17 Units/L (15-37) 03/05/23 05:26 ALT 21 Units/L (12-78) 03/05/23 05:26 Alkaline Phosphatase 80 Units/L (46-116) 03/05/23 05:26 Creatine Kinase 116 Units/L (39-308) 03/04/23 05:20 Troponin I High Sens 27.5 ng/L (4.0-60.0) 03/04/23 05:20 C-Reactive Protein 14.10 mg/L (0-3.0) H 03/03/23 23:30 B-Natriuretic Peptide 63.5 pg/mL (0-79) 03/03/23 23:30 Total Protein 6.5 g/dL (6.4-8.2) 03/05/23 05:26 Albumin 2.9 g/dL (3.4-5.0) L 03/05/23 05:26 Globulin 3.6 g/dL (2.5-4.5) 03/05/23 05:26 Albumin/Globulin Ratio 0.8 Ratio (1.1-2.1) L 03/05/23 05:26 Specimen Type Clean catch urine 03/04/23 06:20 Urine Color Yellow (YELLOW) 03/04/23 06:20 Urine Appearance Clear (CLEAR) 03/04/23 06:20 Urine pH 6.0 (5.0 - 8.0) 03/04/23 06:20 Ur Specific [place] 1.020 (1.000-1.030) 03/04/23 06:20 Urine Protein 3+ (NEGATIVE) 03/04/23 06:20 Urine Glucose (UA) 3+ (NEGATIVE) 03/04/23 06:20 Urine Ketones 3+ (NEGATIVE) 03/04/23 06:20 Urine Blood 4+ (NEGATIVE) 03/04/23 06:20 Urine Nitrite Negative (NEGATIVE) 03/04/23 06:20 Urine Bilirubin Negative (NEGATIVE) 03/04/23 06:20 Urine Urobilinogen Normal (NORMAL) 03/04/23 06:20 Ur Leukocyte Esterase Negative (NEGATIVE) 03/04/23 06:20 Urine RBC 10-20 /HPF (0-3) A 03/04/23 06:20 Urine WBC 0-2 /HPF (0-5) 03/04/23 06:20 Ur Squamous Epith Cells Rare /HPF (NEGATIVE) 03/04/23 06:20 Urine Bacteria Negative /HPF (NEGATIVE) 03/04/23 06:20 Ur Culture Indicated? No/not indicated 03/04/23 06:20 Plan (1) TANA (acute kidney injury): Status: Acute (2) COPD exacerbation: Status: Acute (3) Acute bronchitis: Status: Acute Qualifiers: Bronchitis organism: unspecified organism Qualified Code(s): J20.9 - Acute bronchitis, unspecified (4) Cellulitis of leg, right: Status: Acute (5) Respiratory failure with hypoxia and hypercapnia: Status: Acute Qualifiers: Chronicity: acute Qualified Code(s): J96.01 - Acute respiratory failure with hypoxia; J96.02 - Acute respiratory failure with hypercapnia; J96.02 - Acute respiratory failure with hypercapnia (6) Hyperlipidemia: Status: Chronic Qualifiers: Hyperlipidemia type: mixed hyperlipidemia Qualified Code(s): E78.2 - Mixed hyperlipidemia (7) Diabetes mellitus: Status: Chronic Qualifiers: Diabetes mellitus complication status: with other specified complication Diabetes mellitus intermediate accountant insulin use: with intermediate accountant use Diabetes mellitus type: type 2 Qualified Code(s): E11.69 - Type 2 diabetes mellitus with other specified complication; Z79.4 - terminal gauger supervisor (current) use of insulin (8) Hypertension: Status: Chronic Qualifiers: Hypertension type: primary hypertension Qualified Code(s): I10 - Essent ial (primary) hypertension
[2023-03-06] MEDS: AMARYL TAB 4 MG PO SCH (20:57)
[2023-03-06] MEDS: ZOCOR TAB 40 MG PO SCH (20:57)
[2023-03-06] MEDS: ASPIRIN EC 81 MG PO SCH (20:58)
[2023-03-06] MEDS: SNACK - Diabetic Appropriate PO SCH (20:59)
[2023-03-07] MEDS: Atrovent NEB TX 0.02% NEB SCH ×3 (01:14→08:08)
[2023-03-07] MEDS: PROVENTIL NEB TX 0.083% 2.5MG/ 3ML NEB SCH ×3 (01:14→08:08)
[2023-03-07] MEDS ORDERED: PROVENTIL NEB TX 0.083% 2.5MG/ 3ML ONE (05:31)
[2023-03-07] MEDS: NS 1,000 ML IV 1,000 ML IV SCH ×5 (05:33→20:41)
[2023-03-07 06:15] LABS: BASOPHILS % (AUTO) 0.1 % (0.2-1.0); EOSINOPHILS % (AUTO) 0.1 % (0.9-2.9); HEMOGLOBIN 12.6 g/dL (13.5-18.0); LYMPHOCYTES # (AUTO) 0.5 X10^3/uL (1.3-2.9); LYMPHOCYTES % (AUTO) 4.2 % (21.0-51.0); MEAN CORPUSCULAR HEMOGLOBIN 29.9 pg (27.0-34.0); MEAN CORPUSCULAR HGB CONC 33.3 g/dL (33.0-35.0); MEAN CORPUSCULAR VOLUME 89.8 fL (80.0-100.0); MEAN PLATELET VOLUME 8.8 fL (7.4-11.0); MONOCYTES # (AUTO) 0.8 x10^3/uL (0.3-0.8); MONOCYTES % (AUTO) 6.4 % (0.0-13.0); NEUTROPHILS % (AUTO) 89.2 % (42.0-75.0); RED BLOOD COUNT 4.23 X10^6/uL (4.7-6.0); RED CELL DISTRIBUTION WIDTH 14.2 % (11.6-16.5); WHITE BLOOD COUNT 12.4 X10^3/uL (3.6-10.0)
[2023-03-07 06:24] LABS: BLOOD UREA NITROGEN 74 mg/dL (7-18); CARBON DIOXIDE 33.3 mmol/L (21-32); CHLORIDE 103 mmol/L (98-107); CREATININE 2.24 mg/dL (0.70-1.30); SODIUM 141 mmol/L (136-145); eGFR NON BLACK RACES 31 (>60)
[2023-03-07] MEDS: PULMICORT NEB TX 0.5 MG NEB SCH ×3 (08:04→20:12)
[2023-03-07] MEDS: VIBRAMYCIN 100 MG in D5W 250 ML IV 250 ML IV SCH ×2 (08:49→20:36)
[2023-03-07] MEDS: MILK OF MAGNESIA PO SCH (08:50)
[2023-03-07] MEDS: NEURONTIN CAP 400 MG PO SCH (08:50)
[2023-03-07] MEDS: ACTOS PO SCH (08:50)
[2023-03-07] MEDS: LASIX PO PRN (08:50)
--- NOTE | 2023-03-07 08:51 | RAD ---
HISTORYHYPOXIASTUDYCHEST, 1 [id number]/06/2023FINDINGSThe lungs are clear. No pneumothorax or significant effusion.Heart size is normal.Bones are unremarkable.IMPRESSION1. No significant abnormalityElectronically signed by: Zack Suarez (Mar 07, 2023 08:50:05)
[2023-03-07] MEDS ORDERED: SOLU-Medrol 125 MG VIAL IVP SCH (09:00)
[2023-03-07] MEDS ORDERED: JANUVIA PO SCH (09:00)
[2023-03-07] MEDS: DUONEB 0.5 MG/3 MG (3 mL) NEB SCH ×3 (13:03→20:11)
[2023-03-07] MEDS: LOVENOX INJ 40 MG SYR SC SCH (13:18)
[2023-03-07] MEDS: NovoLIN R (or HumuLIN R) SUBCUT PRN ×3 (13:18→21:49)
[2023-03-07] MEDS ORDERED: PULMICORT NEB TX 0.5 MG NEB ONE (19:13)
[2023-03-07] MEDS: ZOCOR TAB 40 MG PO SCH (20:34)
[2023-03-07] MEDS: AMARYL TAB 4 MG PO SCH (20:34)
[2023-03-07] MEDS: ASPIRIN EC 81 MG PO SCH (20:34)
[2023-03-07] MEDS: SNACK - Diabetic Appropriate PO SCH (20:40)
[2023-03-08] MEDS: DUONEB 0.5 MG/3 MG (3 mL) NEB SCH ×3 (00:05→09:02)
[2023-03-08] MEDS: NS 1,000 ML IV 1,000 ML IV SCH (05:02)
[2023-03-08 05:42] LABS: BASOPHILS % (AUTO) 0.1 % (0.2-1.0); EOSINOPHILS % (AUTO) 0.2 % (0.9-2.9); HEMATOCRIT 36.8 % (42.0-54.0); HEMOGLOBIN 12.4 g/dL (13.5-18.0); LYMPHOCYTES # (AUTO) 0.5 X10^3/uL (1.3-2.9); LYMPHOCYTES % (AUTO) 5.6 % (21.0-51.0); MEAN CORPUSCULAR HEMOGLOBIN 30.2 pg (27.0-34.0); MEAN CORPUSCULAR HGB CONC 33.8 g/dL (33.0-35.0); MEAN CORPUSCULAR VOLUME 89.2 fL (80.0-100.0); MEAN PLATELET VOLUME 8.5 fL (7.4-11.0); MONOCYTES # (AUTO) 0.7 x10^3/uL (0.3-0.8); MONOCYTES % (AUTO) 7.1 % (0.0-13.0); NEUTROPHILS # (AUTO) 8.6 x10^3/uL (2.2-4.8); RED BLOOD COUNT 4.12 X10^6/uL (4.7-6.0); RED CELL DISTRIBUTION WIDTH 14.1 % (11.6-16.5); WHITE BLOOD COUNT 9.9 X10^3/uL (3.6-10.0)
[2023-03-08 06:07] LABS: ALANINE AMINOTRANSFERASE 33 Units/L (12-78); ALBUMIN 3.2 g/dL (3.4-5.0); ALKALINE PHOSPHATASE 70 Units/L (46-116); ASPARTATE AMINO TRANSFERASE 20 Units/L (15-37); BLOOD UREA NITROGEN 74 mg/dL (7-18); CALCIUM 7.6 mg/dL (8.5-10.1); CARBON DIOXIDE 34.2 mmol/L (21-32); CHLORIDE 103 mmol/L (98-107); COR CA(FOR HYPOALB) 8.2 mg/dL (8.5-10.1); CREATININE 2.02 mg/dL (0.70-1.30); SODIUM 140 mmol/L (136-145); TOTAL PROTEIN 6.5 g/dL (6.4-8.2); eGFR NON BLACK RACES 35 (>60)
--- NOTE | 2023-03-08 08:09 | RAD ---
HISTORYACUTE HYPOXEMIA, SOB Relevant Clinical InformationSTUDYCHEST, 1 [id number]/09/2023FINDINGSTrachea is midline, normal heart size. There is trace right effusion with blunting of the lateral costo diaphragmatic angle unchanged since prior. No evidence of pneumothorax. New small right lower lobe radiopacities. Left lung remains clear.IMPRESSIONNew small right lower lobe radiopacities atelectasis versus an early pneumoniaUnchanged trace right pleural effusionElectronically signed by: Faviola Arnett (Mar 08, 2023 08:07:42)
[2023-03-08 08:10] VITALS: BP 137/66
[2023-03-08] MEDS: PULMICORT NEB TX 0.5 MG NEB SCH (09:02)
[2023-03-08] MEDS: ACTOS PO SCH (09:39)
[2023-03-08] MEDS: VIBRAMYCIN 100 MG in D5W 250 ML IV 250 ML IV SCH (09:40)
[2023-03-08] MEDS: NEURONTIN CAP 400 MG PO SCH (09:40)
[2023-03-08] MEDS: LOVENOX INJ 40 MG SYR SC SCH (09:40)
== END 2023-03-08 12:50 | disposition home or self-care (01) | DRG 190 ==
LOC: ER 22:44 → MED/SURG 03-04 03:46
PROVIDERS: ADMIT Obstetrics & Gynecology Obstetrics; ATTEND Internal Medicine
DX: J20.8 Acute bronchitis due to other specified organisms; E78.2 Mixed hyperlipidemia; Z79.4 Long term (current) use of insulin; J44.1 Chronic obstructive pulmonary disease with (acute) exacerbation; R79.82 Elevated C-reactive protein (CRP); L03.115 Cellulitis of right lower limb; I83.009 Varicose veins of unspecified lower extremity with ulcer of unspecified site; I10 Essential (primary) hypertension; J96.02 Acute respiratory failure with hypercapnia; I25.10 Atherosclerotic heart disease of native coronary artery without angina pectoris; R94.31 Abnormal electrocardiogram [ECG] [EKG]; Z20.822 Contact with and (suspected) exposure to COVID-19; N17.8 Other acute kidney failure; R60.0 Localized edema; B95.61 Methicillin susceptible Staphylococcus aureus infection as the cause of diseases classified elsewhere; E11.65 Type 2 diabetes mellitus with hyperglycemia; R51.9 Headache, unspecified; J96.01 Acute respiratory failure with hypoxia

== ENCOUNTER 2023-04-05 15:18 | Inpatient (IN) ==
[~2023-04-05 15:18] MED LIST: SOLU-Medrol 40 MG VIAL IVP SCH
--- NOTE | 2023-04-05 15:47 | DR.SOBA ---
HPI Time Seen Time Seen by Provider: 04/05/23 15:46 Primary Care Physician Primary Care Physician: Addy Complaints Chief Complaint Doctors Comments: 73 y/o male presents with dyspnea. Has been worsening over the past month. + h/o COPD, stopped smoking 2018. Was admitted recently for COPD, was d/c'd 2 weeks ago, had his diuretic decreased to q.o.d. Has been having worsening swelling of both lower legs. Coughs occasionally, productive at times. Denies fever, chills, chest pain. Chief Complaint:: patient to ED via EMS, patient was picked up in Dr Daly's office parking lot, he was attempting to see MD for possible Oxygen RX. Patient C/O severe SOB, increased with exertion, found intitally with Sat at 88% RA, placed on O2 Via NC and increased tp 95% COVID-19 Coronavirus risk:travel/contact w/high risk person: No Has patient experienced Coronavirus symptoms: No Source History Provided: Patient Mode of Arrival Mode of Arrival: EMS Timing Onset of Chief Complaint: 04/05/23 PMH PMH Past Medical History: Yes Past Medical History: COPD, Diabetes and Dyslipidemia Past Surgical History: Yes Surgical History: Ortho Surgery Family History History of Family Medical Conditions: Yes Family Medical History: Diabetes Mellitus, Cancer, [place], Coronary Artery Disease, Heart Failure and Hypertension Social History Does patient currently use any type of tobacco product: No Have you used tobacco products in the last 12 months: No Type of Tobacco Use: None Does any household member use tobacco: No Alcohol Use: None Do you use any recreational Drugs:: No Lives With: Spouse Lives Where: Home Travel Risk Coronavirus risk:travel/contact w/high risk person: No Has patient experienced Coronavirus symptoms: No Infectious screening In the last 2 months have you had wt loss of >10#?: NO Have you had fever, night sweats or hemotysis?: No Have you traveled outside the country in the last 6 months?: No Isolation: Standard ROS Review of Systems Constitutional: Weakness Eyes: No Symptoms Reported ENTM: No Symptoms Reported Respiratoy: Short of Breath Cardiovascular: Edema Gastrointestinal/Abdominal: No Symptoms Reported Genitourinary: No Symptoms Reported Neurological: No Symptoms Reported Musculoskeletal: No Symptoms Reported Integumentary: No Symptoms Reported Hematologic/Lymphatic: No Symptoms Reported Psychiatric: No Symptoms Reported All Other Systems: Reviewed and Negative PE Vital Signs Vitals: Temperature 98.2 F Pulse Rate 64 Respiratory Rate 21 Blood Pressure [Left Arm] 137/66 Blood Pressure [Right Arm] 113/58 Blood Pressure [Left Arm] 126/60 Blood Pressure 179/79 O2 Sat by Pulse Oximetry 90 General General Appearance: Alert and Other (+ mild tachypnea) Eyes Eye exam: PERRL and EOMI ENT ENT Exam: Mucous Membranes Moist Neck Neck Exam: Other (+ JVD) Respiratory Respiratory Exam: Bilateral: Rales (at the bases) Cardiovascular Cardiovascular Exam: Irregular Rhythm and Normal Heart Sounds Abdominal Exam Abdominal Exam: Normal Bowel Sounds and Soft; negative Tenderness Extremities Extremities Exam: Edema (chronic, 4+, with induration, brawny discoloration.) Back Back Exam: Normal Inspection Neurologic Neurological Exam: Alert, Oriented X3 and CN II-XII Intact; negative Motor Sensory Deficit Skin Skin Exam: Warm and Dry COURSE Treatment Treatment: 73 y/o male with h/o COPD, presents with worsening dyspnea. Was decreased on his diuretic past 2 weeks. Pt clinically in atrial fibrillation, with bilateral lower ext edema.Probably with secondary CHF. W/u initiated. 1838 - looks wet, despite BNP of only 59. Pt given IV lasix. Also given a duoneb treatment and IV solumedrol. Discussed with his attending, Dr Daly, will admit. ROR Labs Reviewed Laboratory Results Reviewed?: Yes Result Diagrams: 04/05/23 16:04 04/05/23 16:04 Laboratory: WBC 5.0 X10^3/uL (3.6-10.0) 04/05/23 16:04 RBC 3.73 X10^6/uL (4.7-6.0) L 04/05/23 16:04 Hgb 11.3 g/dL (13.5-18.0) L 04/05/23 16:04 Hct 33.2 % (42.0-54.0) L 04/05/23 16:04 MCV 88.9 fL (80.0-100.0) 04/05/23 16:04 MCH 30.2 pg (27.0-34.0) 04/05/23 16:04 MCHC 34.0 g/dL (33.0-35.0) 04/05/23 16:04 RDW 13.8 % (11.6-16.5) 04/05/23 16:04 Plt Count 165 X10^3/uL (150.0-450.0) 04/05/23 16:04 MPV 8.5 fL (7.4-11.0) 04/05/23 16:04 Neut % (Auto) 77.4 % (42.0-75.0) H 04/05/23 16:04 Lymph % (Auto) 7.7 % (21.0-51.0) L 04/05/23 16:04 [place] % (Auto) 9.4 % (0.0-13.0) 04/05/23 16:04 Eos % (Auto) 4.5 % (0.9-2.9) H 04/05/23 16:04 Baso % (Auto) 1.0 % (0.2-1.0) 04/05/23 16:04 Neut # (Auto) 3.9 x10^3/uL (2.2-4.8) 04/05/23 16:04 Lymph # (Auto) 0.4 X10^3/uL (1.3-2.9) L 04/05/23 16:04 [place] # (Auto) 0.5 x10^3/uL (0.3-0.8) 04/05/23 16:04 Eos # (Auto) 0.2 x10^3/uL (0.0-0.2) 04/05/23 16:04 Baso # (Auto) 0.1 X10^3/uL (0.0-0.1) 04/05/23 16:04 Absolute Nucleated RBC 0.0 /100WBC 04/05/23 16:04 Sodium 145 mmol/L (136-145) 04/05/23 16:04 Corrected Sodium 146 mmol/L (136-145) H 04/05/23 16:04 Potassium 4.4 mmol/L (3.5-5.1) 04/05/23 16:04 Chloride 107 mmol/L (98-107) 04/05/23 16:04 Carbon Dioxide 34.5 mmol/L (21-32) H 04/05/23 16:04 BUN 22 mg/dL (7-18) H 04/05/23 16:04 Creatinine 1.06 mg/dL (0.70-1.30) 04/05/23 16:04 Est GFR (MDRD) Af Amer > 60 (>60) 04/05/23 16:04 Est GFR (MDRD) Non-Af > 60 (>60) 04/05/23 16:04 Glucose 125 mg/dL (65-99) H 04/05/23 16:04 Calcium 7.9 mg/dL (8.5-10.1) L 04/05/23 16:04 Corrected Calcium 9.1 mg/dL (8.5-10.1) 04/05/23 16:04 Total Bilirubin 0.60 mg/dL (0.2-1.0) 04/05/23 16:04 AST 32 Units/L (15-37) 04/05/23 16:04 ALT 24 Units/L (12-78) 04/05/23 16:04 Alkaline Phosphatase 81 Units/L (46-116) 04/05/23 16:04 Troponin I High Sens 20.4 ng/L (4.0-60.0) 04/05/23 16:04 B-Natriuretic Peptide 59.0 pg/mL (0-79) 04/05/23 16:04 Total Protein 6.0 g/dL (6.4-8.2) L 04/05/23 16:04 Albumin 2.5 g/dL (3.4-5.0) L 04/05/23 16:04 Globulin 3.5 g/dL (2.5-4.5) 04/05/23 16:04 Albumin/Globulin Ratio 0.7 Ratio (1.1-2.1) L 04/05/23 16:04 Labs acceptable. BNP normal at 59. XRAY XRAY Interpreted by: Self X-ray Results: + cardiomegaly, + increased markings of bilateral lower lumg overton, possible degree of pulmonary vascular congestion, with slight R pleural effusion. EKG Rate: 68 [place]: Normal Rhythm: Afib ST: Nonsp Opioid Opioid Risk Tool Age ([place] box if 16-45): No History of Preadolescent Sexual Abuse: No Total: 0 Total Score Risk Category: Low Risk Copyright: Chung predicting aberrant behaviors Discharge Plan Diagnosis Discharge Problem: CHF (congestive heart failure), COPD exacerbation, Atrial fibrillation Discharge Plan Patient Disposition: ADMITTED INPATIENT Condition: Stable Orders to Discharge Patient Discharge Orders: Transfer (Routine); Ordered 04/05/23 Ordered By: Nico Chakraborty
--- NOTE | 2023-04-05 16:08 | EKG ---
Test Reason : dyspnea Blood Pressure : */* mmHG Vent. Rate : 68 BPM Atrial Rate : * BPM P-R Int : * ms QRS Dur : 84 ms QT Int : 402 ms P-R-T Axes : * 37 65 degrees QTc Int : 427 ms Atrial fibrillation Abnormal ECG When compared with ECG of 03-APR-2023 01:37, Nonspecific T wave abnormality no longer evident in Inferior leads Confirmed by Luis E Olson ([id number]) on 04/06/2023 12:38:32 PM Referred By: Confirmed By: Luis E Olson
[2023-04-05 16:13] LABS: BASOPHILS # (AUTO) 0.1 X10^3/uL (0.0-0.1); EOSINOPHILS # (AUTO) 0.2 x10^3/uL (0.0-0.2); EOSINOPHILS % (AUTO) 4.5 % (0.9-2.9); HEMATOCRIT 33.2 % (42.0-54.0); HEMOGLOBIN 11.3 g/dL (13.5-18.0); LYMPHOCYTES # (AUTO) 0.4 X10^3/uL (1.3-2.9); LYMPHOCYTES % (AUTO) 7.7 % (21.0-51.0); MEAN CORPUSCULAR HEMOGLOBIN 30.2 pg (27.0-34.0); MEAN CORPUSCULAR VOLUME 88.9 fL (80.0-100.0); MEAN PLATELET VOLUME 8.5 fL (7.4-11.0); MONOCYTES # (AUTO) 0.5 x10^3/uL (0.3-0.8); MONOCYTES % (AUTO) 9.4 % (0.0-13.0); NEUTROPHILS # (AUTO) 3.9 x10^3/uL (2.2-4.8); NEUTROPHILS % (AUTO) 77.4 % (42.0-75.0); PLATELET COUNT 165 X10^3/uL (150.0-450.0); RED BLOOD COUNT 3.73 X10^6/uL (4.7-6.0); RED CELL DISTRIBUTION WIDTH 13.8 % (11.6-16.5)
[2023-04-05 16:25] LABS: ALANINE AMINOTRANSFERASE 24 Units/L (12-78); ALBUMIN 2.5 g/dL (3.4-5.0); ALKALINE PHOSPHATASE 81 Units/L (46-116); ASPARTATE AMINO TRANSFERASE 32 Units/L (15-37); BLOOD UREA NITROGEN 22 mg/dL (7-18); CALCIUM 7.9 mg/dL (8.5-10.1); CARBON DIOXIDE 34.5 mmol/L (21-32); CHLORIDE 107 mmol/L (98-107); COR CA(FOR HYPOALB) 9.1 mg/dL (8.5-10.1); COR NA(FOR HYPERGLY) 146 mmol/L (136-145); CREATININE 1.06 mg/dL (0.70-1.30); GLUCOSE 125 mg/dL (65-99); SODIUM 145 mmol/L (136-145); eGFR NON BLACK RACES > 60 (>60)
[2023-04-05 16:27] LABS: POTASSIUM 4.4 mmol/L (3.5-5.1)
[2023-04-05] MEDS ORDERED: LASIX IVP ONE ×2 (17:15→18:03)
[2023-04-05] MEDS ORDERED: SOLU-Medrol 125 MG VIAL IVP ONE (17:49)
[2023-04-05] MEDS ORDERED: DUONEB 0.5 MG/3 MG (3 mL) NEB ONE ×3 (17:49→20:52)
[2023-04-05] MEDS ORDERED: SOLU-Medrol 125 MG VIAL ONE (17:53)
[2023-04-05] MEDS ORDERED: LOVENOX INJ 40 MG SYR SC STA (18:51)
[2023-04-05] MEDS ORDERED: LOVENOX INJ 40 MG SYR SC ONE (18:55)
[2023-04-05 20:42] VITALS: BMI 35.2
[2023-04-05] MEDS ORDERED: PULMICORT NEB TX 0.5 MG NEB ONE (20:52)
[2023-04-05] MEDS ORDERED: DUONEB 0.5 MG/3 MG (3 mL) NEB SCH (21:00)
[2023-04-05] MEDS ORDERED: PULMICORT NEB TX 0.5 MG NEB SCH (21:00)
[2023-04-05] MEDS: PULMICORT NEB TX 0.5 MG NEB SCH (21:15)
[2023-04-05] MEDS: DUONEB 0.5 MG/3 MG (3 mL) NEB SCH (21:15)
[2023-04-05] MEDS: ZOCOR TAB 40 MG PO SCH (21:59)
[2023-04-05] MEDS ORDERED: CATAPRES TAB 0.1 MG PO ONE (22:26)
[2023-04-05] MEDS: NovoLIN R (or HumuLIN R) SUBCUT PRN (22:58)
--- NOTE | 2023-04-06 01:14 | RAD ---
HISTORYSOB Relevant Clinical InformationSTUDYCHEST, 1 [id number]/07/2023FINDINGSThe trachea is midline. The cardiac silhouette is unremarkable. Right basilar subsegmental atelectasis and/or infiltrate. The bony thorax is unremarkable.IMPRESSIONRight basilar subsegmental atelectasis and/or infiltrate..Electronically signed by: Nate Orozco (April 06, 2023 01:12:53)
[2023-04-06 05:13] LABS: BASOPHILS % (AUTO) 0.4 % (0.2-1.0); EOSINOPHILS % (AUTO) 0.1 % (0.9-2.9); HEMOGLOBIN 11.2 g/dL (13.5-18.0); LYMPHOCYTES # (AUTO) 0.2 X10^3/uL (1.3-2.9); LYMPHOCYTES % (AUTO) 4.5 % (21.0-51.0); MEAN CORPUSCULAR HEMOGLOBIN 29.8 pg (27.0-34.0); MEAN CORPUSCULAR HGB CONC 33.9 g/dL (33.0-35.0); MEAN CORPUSCULAR VOLUME 88.1 fL (80.0-100.0); MEAN PLATELET VOLUME 9.1 fL (7.4-11.0); MONOCYTES # (AUTO) 0.1 x10^3/uL (0.3-0.8); MONOCYTES % (AUTO) 1.7 % (0.0-13.0); NEUTROPHILS # (AUTO) 3.4 x10^3/uL (2.2-4.8); NEUTROPHILS % (AUTO) 93.3 % (42.0-75.0); PLATELET COUNT 139 X10^3/uL (150.0-450.0); RED BLOOD COUNT 3.75 X10^6/uL (4.7-6.0); RED CELL DISTRIBUTION WIDTH 13.7 % (11.6-16.5); WHITE BLOOD COUNT 3.6 X10^3/uL (3.6-10.0)
[2023-04-06 05:18] LABS: ALANINE AMINOTRANSFERASE 21 Units/L (12-78); ALBUMIN 2.5 g/dL (3.4-5.0); ALKALINE PHOSPHATASE 79 Units/L (46-116); ASPARTATE AMINO TRANSFERASE 16 Units/L (15-37); BLOOD UREA NITROGEN 23 mg/dL (7-18); CALCIUM 7.8 mg/dL (8.5-10.1); CARBON DIOXIDE 35.2 mmol/L (21-32); CHLORIDE 103 mmol/L (98-107); COR NA(FOR HYPERGLY) 147 mmol/L (136-145); CREATININE 1.21 mg/dL (0.70-1.30); GLUCOSE 315 mg/dL (65-99); POTASSIUM 4.2 mmol/L (3.5-5.1); SODIUM 142 mmol/L (136-145); TOTAL PROTEIN 5.9 g/dL (6.4-8.2); eGFR NON BLACK RACES > 60 (>60)
[2023-04-06 05:45] LABS: PLATELET MORPHOLOGY COMMENT NORMAL (NORMAL)
[2023-04-06] MEDS: SOLU-Medrol 40 MG VIAL IVP SCH ×3 (05:53→21:00)
[2023-04-06] MEDS: NovoLIN R (or HumuLIN R) SUBCUT PRN ×4 (05:54→21:29)
[2023-04-06] MEDS: DUONEB 0.5 MG/3 MG (3 mL) NEB SCH ×3 (06:16→21:00)
[2023-04-06] MEDS: PULMICORT NEB TX 0.5 MG NEB SCH ×2 (08:53→21:00)
[2023-04-06] MEDS: LASIX IVP SCH ×2 (10:08→17:58)
[2023-04-06] MEDS: ACTOS PO SCH (10:08)
[2023-04-06] MEDS: LOVENOX INJ 40 MG SYR SC SCH (10:08)
[2023-04-06] MEDS: SNACK - Diabetic Appropriate PO SCH (19:48)
[2023-04-06] MEDS: ZOCOR TAB 40 MG PO SCH (21:00)
--- NOTE | 2023-04-06 23:15 | DR.H&P ---
H&P - History & Physical for Day of: H&P Date: 04/05/23 - Chief Complaint Chief Complaint: SHORTNESS OF BREATH, HYPOXIA, OCCASIONAL COUGH - History of Present Illness History of Present Illness: IS A 73 YEAR OLD PATIENT OF OURS. HE PRE SENTED TO THE ER VIA EMS WITH COMPLAINTS OF SEVERE SHORTNESS OF BREATH AND HYPOXIA. HE REPORTS THAT SHORTNESS OF BREATH IS WORSE ON EXERTION. WHILE AT THE OFFICE, PATIENT WAS FOUND TO HAVE AN OXYGEN SATURATION OF 88% ON ROOM AIR. HE WAS PLACED ON OXYGEN VIA NASAL CANNULA AT 2 LPM AND SATURATIONS INCREASED TO 95%. HE REPORTS INCREASED SWELLING OF BILATERAL LOWER EXTREMITIES. HE ALSO ADMITS TO AN OCCASIONAL COUGH THAT IS PRODUCTIVE AT TIMES. HE DENIES CHEST PAIN, BACK PAIN, ABDOMINAL PAIN, OR NAUSEA AND VOMITING. HE HAS A PMH OF HTN, COPD, DM II, DYSLIPIDEMIA, LEFT HIP REPLACEMENT, AND BILATERAL CATARACT SURGERY. HE WAS RECENTLY ADMITTED FOR TREATMENT OF COPD. EMS ARRIVAL, THEY ADMINISTERED A NEBULIZER TREATMENT. ON ARRIVAL TO THE ER, HIS VITALS WERE 98.2-72-20-94%-205/124. LABS WERE OBTAINED. WBC 5.0, RBC 3.73, HGB 11.3, HCT 33.2, PLT COUNT 165, SODIUM 145, POTASSIUM 4.4, CHLORIDE 107, CARBON DIOXIDE 34.5, BUN 22, CREATININE 1.06, GLUCOSE 125, CALCIUM 7.9, AST 32, ALT 24, ALK PHOS 81, BNP 59.0, TOTAL PROTEIN 6.0, ALBUMIN 2.5. A CHEST XRAY WAS OBTAINED AND REVEALED: Right basilar subsegmental atelectasis and/or infiltrate. EKG REVEALED: ATRIAL FIBRILLATION WITH HR 68 BPM. IN THE ER, HE WAS GIVEN CATAPRES 0.1MG, SOLU-MEDROL 125MG IV X 1 DOSE, DUONEB X 1, AND LEVAQUIN 750MG IV X 1. HIS BLOOD PRESSURE DECREASED TO 172/84. HE WAS ADMITTED TO THE HOSPITAL INPATIENT STATUS FOR FURTHER EVALUATION AND TREATMENT OF COPD EXACERBATION, CHF, RESPIRATORY FAILURE WITH HYPOXIA, SHORTNESS OF BREATH, DM II, HTN, AND DYSLIPIDEMIA. HE WAS STARTED ON LASIC 40MG IV BID, SOLU-MEDROL 40MG IV Q8H, DUONEBS TID, PULMICORT NEBS BID, OTBS ACHS, HUMULIN R SLIDING SCALE, AND HIS HOME MEDICATIONS WERE RESUMED. HOME MEDS INCLUDE: SIMVASTATIN, PIOGLITAZONE, IRBESARTAN-HCTZ. OTHERWISE, WE PLAN TO FOLLOW-UP WITH AM LABS AND CHEST XRAY AND CONTINUE TO MONITOR. TIME SPENT ON CLINICAL ASSESSMENT, REVIEWING LABS AND IMAGING, DECISION MAKING, AND DOCUMENTATION GREATER THAN 75 MINUTES. - Past Medical History Past Medical History: COPD, Diabetes, Dyslipidemia, Hypertension - Past Surgical History Surgical History: Joint Replacement, Ortho Surgery - Family History Family Medical History: Diabetes Mellitus, Cancer, [place], Coronary Artery Disease, Heart Failure, Hypertension - Social History Does patient currently use any type of tobacco product: No Have you used tobacco products in the last 12 months: No Type of Tobacco Use: Cigarettes How many years tobacco product used: 40 Does any household member use tobacco: No Alcohol Use: None Drug Use: None - Medications Home Medications: No Known Drug Allergies Allergy (Verified 11/28/18 02:16) - Review of Systems Constitutional: Weakness Eyes: No Symptoms Reported ENT: No Symptoms Reported Respiratory: Cough, Shortness of Breath, SOB with Excertion Cardiovascular: Edema Gastrointestinal: No Symptoms Reported Genitourinary: No Symptoms Reported Musculoskeletal: No Symptoms Reported Skin: No Symptoms Reported Neurological: Weakness - Physical Exam Vital Signs: Temperature 97.6 F Pulse Rate [Apical] 63 Pulse Rate 70 Respiratory Rate 18 Blood Pressure [Left Arm] 168/92 Blood Pressure [Right Arm] 147/71 Blood Pressure [Left Arm] 126/60 Blood Pressure 148/68 O2 Sat by Pulse Oximetry 95 Oriented: Normal Eyes: Normal Ear: Normal Nose: Normal Throat: Normal Respiratory: Wheezes Throughout Cardiovascular: Normal, Irregular (ATRIAL FIBRILLATION ), Edema (BLE 3+ PITTING EDEMA ) : Normal Auscultation: Bowel Sounds: Normal Palpation: Normal Tenderness: Normal Skin: Normal Musculoskeletal: Right, Left, Leg, Swelling Psychiatric: Normal Mood Description: Calm Affect: Normal Speech Pattern: Clear - Assessment/Plan (1) COPD exacerbation Status: Acute Plan: ADMIT, SUPPLEMENTAL OXYGEN, LASIX 40MG IV BID, SOLU-MEDROL 40MG IV Q8H, DUONEBS TID, PULMICORT NEBS BID, OTBS ACHS, HUMULIN R SLIDING SCALE, AND HIS HOME MEDICATIONS WERE RESUMED. (2) CHF (congestive heart failure) Qualifiers: Heart failure type: unspecified Heart failure chronicity: acute Qualified Code(s): I50.9 - Heart failure, unspecified Status: Acute (3) Respiratory failure with hypoxia Qualifiers: Chronicity: acute on chronic Qualified Code(s): J96.21 - Acute and chronic respiratory failure with hypoxia Status: Acute (4) Diabetes mellitus Qualifiers: Diabetes mellitus type: type 2 Diabetes mellitus terminal gauger insulin use: with terminal gauger use Diabetes mellitus complication status: with other specified complication Qualified Code(s): E11.69 - Type 2 diabetes mellitus with other specified complication; Z79.4 - [facility] (current) use of insulin Status: Chronic (5) Hyperlipidemia Qualifiers: Hyperlipidemia type: mixed hyperlipidemia Qualified Code(s): E78.2 - Mixed hyperlipidemia Status: Chronic (6) Hypertension Qualifiers: Hypertension type: primary hypertension Qualified Code(s): I10 - Essential (primary) hypertension Status: Chronic - Allergies Allergies/Adverse Reactions: Allergies Allergy/AdvReac Type Severity Reaction Status Date / Time No Known Drug Allergies Allergy Verified 11/28/18 02:16
[2023-04-07] MEDS: SOLU-Medrol 40 MG VIAL IVP SCH ×3 (05:44→21:05)
[2023-04-07] MEDS: NovoLIN R (or HumuLIN R) SUBCUT PRN ×4 (05:45→21:06)
--- NOTE | 2023-04-07 05:47 | RAD ---
HISTORYSOB Relevant Clinical InformationSTUDYCHEST, 1 [id number]/09/2023FINDINGSThe trachea is midline. The cardiac silhouette is unremarkable. Right basilar subsegmental atelectasis and/or infiltrate improved from previous 04/05/2023. Ion. The bony thorax is unremarkable.IMPRESSIONRight basilar subsegmental atelectasis and/or infiltrate improved from previous 04/05/2023.Electronically signed by: Nate Orozco (April 07, 2023 05:45:18)
[2023-04-07] MEDS: DUONEB 0.5 MG/3 MG (3 mL) NEB SCH ×3 (06:00→20:17)
[2023-04-07 06:16] LABS: BASOPHILS % (AUTO) 0 % (0.2-1.0); HEMATOCRIT 34.9 % (42.0-54.0); HEMOGLOBIN 11.8 g/dL (13.5-18.0); LYMPHOCYTES # (AUTO) 0.3 X10^3/uL (1.3-2.9); LYMPHOCYTES % (AUTO) 2.3 % (21.0-51.0); MEAN CORPUSCULAR HEMOGLOBIN 29.9 pg (27.0-34.0); MEAN CORPUSCULAR HGB CONC 33.9 g/dL (33.0-35.0); MEAN CORPUSCULAR VOLUME 88.2 fL (80.0-100.0); MONOCYTES # (AUTO) 0.4 x10^3/uL (0.3-0.8); MONOCYTES % (AUTO) 3.5 % (0.0-13.0); NEUTROPHILS % (AUTO) 94.2 % (42.0-75.0); PLATELET COUNT 156 X10^3/uL (150.0-450.0); RED BLOOD COUNT 3.96 X10^6/uL (4.7-6.0); RED CELL DISTRIBUTION WIDTH 13.8 % (11.6-16.5); WHITE BLOOD COUNT 11.7 X10^3/uL (3.6-10.0)
[2023-04-07 06:23] LABS: ALANINE AMINOTRANSFERASE 25 Units/L (12-78); ALBUMIN 2.7 g/dL (3.4-5.0); ALKALINE PHOSPHATASE 87 Units/L (46-116); ASPARTATE AMINO TRANSFERASE 14 Units/L (15-37); BLOOD UREA NITROGEN 37 mg/dL (7-18); CARBON DIOXIDE 34.6 mmol/L (21-32); CHLORIDE 101 mmol/L (98-107); COR NA(FOR HYPERGLY) 146 mmol/L (136-145); GLUCOSE 333 mg/dL (65-99); POTASSIUM 4.1 mmol/L (3.5-5.1); SODIUM 140 mmol/L (136-145); TOTAL PROTEIN 6.5 g/dL (6.4-8.2); eGFR NON BLACK RACES 53 (>60)
[2023-04-07 06:36] LABS: BAND NEUTROPHILS % 10 % (0-10); PLATELET MORPHOLOGY COMMENT NORMAL (NORMAL)
[2023-04-07] MEDS: PULMICORT NEB TX 0.5 MG NEB SCH ×2 (08:12→20:17)
[2023-04-07] MEDS: LASIX IVP SCH ×2 (08:40→17:36)
[2023-04-07] MEDS: LOVENOX INJ 40 MG SYR SC SCH (08:40)
[2023-04-07] MEDS: ACTOS PO SCH (08:41)
[2023-04-07] MEDS: SNACK - Diabetic Appropriate PO SCH (20:04)
[2023-04-07] MEDS: ZOCOR TAB 40 MG PO SCH (21:04)
[2023-04-07] MEDS: XARELTO PO SCH (21:04)
[2023-04-08] MEDS: DUONEB 0.5 MG/3 MG (3 mL) NEB SCH (05:03)
[2023-04-08 05:11] LABS: BASOPHILS % (AUTO) 0 % (0.2-1.0); HEMATOCRIT 34.5 % (42.0-54.0); HEMOGLOBIN 11.6 g/dL (13.5-18.0); LYMPHOCYTES # (AUTO) 0.2 X10^3/uL (1.3-2.9); MEAN CORPUSCULAR HEMOGLOBIN 29.6 pg (27.0-34.0); MEAN CORPUSCULAR HGB CONC 33.7 g/dL (33.0-35.0); MEAN CORPUSCULAR VOLUME 87.7 fL (80.0-100.0); MEAN PLATELET VOLUME 8.9 fL (7.4-11.0); MONOCYTES # (AUTO) 0.5 x10^3/uL (0.3-0.8); NEUTROPHILS # (AUTO) 11.3 x10^3/uL (2.2-4.8); PLATELET COUNT 173 X10^3/uL (150.0-450.0); RED BLOOD COUNT 3.94 X10^6/uL (4.7-6.0); RED CELL DISTRIBUTION WIDTH 13.8 % (11.6-16.5); WHITE BLOOD COUNT 12.1 X10^3/uL (3.6-10.0)
[2023-04-08 05:27] LABS: ALANINE AMINOTRANSFERASE 30 Units/L (12-78); ALBUMIN 2.7 g/dL (3.4-5.0); ALKALINE PHOSPHATASE 78 Units/L (46-116); ASPARTATE AMINO TRANSFERASE 18 Units/L (15-37); BLOOD UREA NITROGEN 43 mg/dL (7-18); CALCIUM 8.1 mg/dL (8.5-10.1); CARBON DIOXIDE 37.8 mmol/L (21-32); CHLORIDE 101 mmol/L (98-107); COR CA(FOR HYPOALB) 9.1 mg/dL (8.5-10.1); COR NA(FOR HYPERGLY) 146 mmol/L (136-145); CREATININE 1.46 mg/dL (0.70-1.30); GLUCOSE 351 mg/dL (65-99); POTASSIUM 4.3 mmol/L (3.5-5.1); SODIUM 140 mmol/L (136-145); TOTAL PROTEIN 6.2 g/dL (6.4-8.2); eGFR NON BLACK RACES 50 (>60)
[2023-04-08 05:36] LABS: PLATELET MORPHOLOGY COMMENT NORMAL (NORMAL)
[2023-04-08] MEDS: SOLU-Medrol 40 MG VIAL IVP SCH ×2 (05:36→14:37)
[2023-04-08] MEDS: NovoLIN R (or HumuLIN R) SUBCUT PRN ×2 (05:37→11:59)
--- NOTE | 2023-04-08 07:59 | RAD ---
HISTORYShortness of breathSTUDYChest AP [id number]/11/2023FINDINGSThe heart is within normal limits in size. The nicolette are normal. Aorta is calcified. Lungs are mildly hyperinflated but free of acute infiltrates. No definite pleural effusions are identified. Bony thorax is unremarkable.IMPRESSIONLungs mildly hyperinflated and now free of acute infiltratesElectronically signed by: LUPE CONTI (April 08, 2023 07:58:00)
[2023-04-08] MEDS: PULMICORT NEB TX 0.5 MG NEB SCH (08:04)
[2023-04-08] MEDS: XARELTO PO SCH (08:59)
[2023-04-08] MEDS: LASIX IVP SCH (08:59)
[2023-04-08] MEDS: ACTOS PO SCH (08:59)
[2023-04-08 12:03] VITALS: BP 161/74
[2023-04-10] MEDS ORDERED: PATIENT'S HOME MEDICATION (Semaglutide [Ozempic] 0.25 mg or 0.5 mg(2 mg/1.5 mL) pen inject SUBCUT SCH (09:00)
== END 2023-04-08 16:00 | disposition home or self-care (01) | DRG 190 ==
LOC: ER 15:18 → ICU 18:50 → MED/SURG 04-06 16:08
PROVIDERS: ADMIT Internal Medicine; ATTEND Internal Medicine
DX: I11.0 Hypertensive heart disease with heart failure; J98.11 Atelectasis; R60.0 Localized edema; E87.5 Hyperkalemia; L97.919 Non-pressure chronic ulcer of unspecified part of right lower leg with unspecified severity; Z79.4 Long term (current) use of insulin; I48.91 Unspecified atrial fibrillation; J96.21 Acute and chronic respiratory failure with hypoxia; R94.31 Abnormal electrocardiogram [ECG] [EKG]; L97.829 Non-pressure chronic ulcer of other part of left lower leg with unspecified severity; I50.9 Heart failure, unspecified; E11.65 Type 2 diabetes mellitus with hyperglycemia; J44.1 Chronic obstructive pulmonary disease with (acute) exacerbation; E78.2 Mixed hyperlipidemia

== ENCOUNTER 2023-05-13 12:50 | Inpatient (IN) ==
--- NOTE | 2023-05-13 12:58 | DR.SOBA ---
HPI Time Seen Time Seen by Provider: 05/13/23 13:13 Complaints Chief Complaint Doctors Comments: 73 y/o male presents for evaluation. Brought in via EMS. Has h/o COPD, having several exacerbations ovre the past month, with 4 ER visits, and admission. Denies cough, just can't get enough air. No report of fever. No worsening swelling of legs. Denies bowel or bladder complaints. Denies chest pain. Reviewed Nurses Notes Reviewed: Yes Source History Provided: Patient and Significant Other PMH PMH Past Medical History: COPD, Diabetes, Dyslipidemia and Hypertension Past Surgical History: Yes Surgical History: Joint Replacement and Ortho Surgery Family History Family Medical History: Diabetes Mellitus, Cancer, [place], Coronary Artery Disease, Heart Failure and Hypertension Social History Does patient currently use any type of tobacco product: No Alcohol Use: None Do you use any recreational Drugs:: No ROS Review of Systems Constitutional: Weakness Eyes: No Symptoms Reported ENTM: No Symptoms Reported Respiratoy: Short of Breath Cardiovascular: No Symptoms Reported Gastrointestinal/Abdominal: No Symptoms Reported Genitourinary: No Symptoms Reported Neurological: No Symptoms Reported Musculoskeletal: No Symptoms Reported Integumentary: No Symptoms Reported All Other Systems: Reviewed and Negative PE Vital Signs Vitals: Vital Signs Temperature 98.1 F Pulse Rate 81 Pulse Rate 88 Pulse Rate 85 Pulse Rate 81 Pulse Rate 80 Pulse Rate 109 Pulse Rate 60 Pulse Rate 61 Pulse Rate 99 Pulse Rate 80 Pulse Rate 84 Pulse Rate 75 Pulse Rate 80 Pulse Rate 75 Pulse Rate 80 Respiratory Rate 24 Respiratory Rate 13 Respiratory Rate 18 Respiratory Rate 21 Respiratory Rate 16 Respiratory Rate 38 Respiratory Rate 21 Respiratory Rate 22 Blood Pressure 206/87 Blood Pressure 178/92 Blood Pressure 166/74 Blood Pressure 182/74 Blood Pressure 183/76 O2 Sat by Pulse Oximetry 97 O2 Sat by Pulse Oximetry 94 O2 Sat by Pulse Oximetry 96 O2 Sat by Pulse Oximetry 95 O2 Sat by Pulse Oximetry 95 O2 Sat by Pulse Oximetry 97 O2 Sat by Pulse Oximetry 89 O2 Sat by Pulse Oximetry 85 O2 Sat by Pulse Oximetry 94 O2 Sat by Pulse Oximetry 99 O2 Sat by Pulse Oximetry 97 05/13/23 13:04 05/13/23 13:04 05/13/23 13:15 Temperature 98.1 F Pulse Rate 80 75 80 Respiratory Rate 22 21 38 H O2 Sat by Pulse Oximetry 97 99 94 L Oxygen Delivery Method Nasal Cannula Blood Pressure 183/76 Blood Pressure Mean Weight 240 lb 05/13/23 13:30 05/13/23 14:00 05/13/23 14:01 Temperature Pulse Rate 75 84 Respiratory Rate 16 21 O2 Sat by Pulse Oximetry Oxygen Delivery Method Blood Pressure 182/74 Blood Pressure Mean 106 Weight 05/13/23 14:01 05/13/23 14:15 05/13/23 14:30 Temperature Pulse Rate 80 99 H 61 Respiratory Rate 18 O2 Sat by Pulse Oximetry 85 L 89 L Oxygen Delivery Method Blood Pressure Blood Pressure Mean Weight 05/13/23 14:31 05/13/23 14:31 05/13/23 14:45 Temperature Pulse Rate 60 109 H Respiratory Rate O2 Sat by Pulse Oximetry 97 Oxygen Delivery Method Blood Pressure 166/74 Blood Pressure Mean 107 Weight 05/13/23 15:00 05/13/23 15:00 05/13/23 15:15 Temperature Pulse Rate 80 81 Respiratory Rate 13 24 O2 Sat by Pulse Oximetry 95 95 Oxygen Delivery Method Blood Pressure 178/92 Blood Pressure Mean 125 Weight 05/13/23 15:30 05/13/23 15:31 05/13/23 15:31 Temperature Pulse Rate 85 88 Respiratory Rate O2 Sat by Pulse Oximetry 96 94 L Oxygen Delivery Method Blood Pressure 206/87 Blood Pressure Mean 125 Weight 05/13/23 15:45 Temperature Pulse Rate 81 Respiratory Rate O2 Sat by Pulse Oximetry 97 Oxygen Delivery Method Blood Pressure Blood Pressure Mean Weight General General Appearance: Alert Eyes Eye exam: PERRL and EOMI ENT ENT Exam: Normal Oropharynx and Mucous Membranes Moist Neck Neck Exam: Normal Inspection Respiratory Respiratory Exam: Other (few scattered rhonchi); negative Accessory Muscle Use or Respiratory Distress Abdominal Exam Abdominal Exam: Soft; negative Tenderness Extremities Extremities Exam: Edema (chronic, 2+ with stasis dermatitis changes. ) Back Back Exam: Normal Inspection Neurologic Neurological Exam: Alert, Oriented X3 and CN II-XII Intact; negative Motor Sensory Deficit Skin Skin Exam: Warm and Dry COURSE Treatment Treatment: 73 y/o male, h/o COPD, O2 dependent, with worsening dyspnea. W/u initiated. CXR concerning for CHF, BNP wnl. Pt given dose of lasix. Pt given duoneb, steroids PYA. Recommend admission for further treatment, accepted by Dr Daly. ROR Labs Reviewed Laboratory Results Reviewed?: Yes Result Diagrams: 05/15/23 04:46 05/15/23 04:46 Laboratory: WBC 5.3 X10^3/uL (3.6-10.0) 05/13/23 13:33 RBC 3.85 X10^6/uL (4.7-6.0) L 05/13/23 13:33 Hgb 11.5 g/dL (13.5-18.0) L 05/13/23 13:33 Hct 34.6 % (42.0-54.0) L 05/13/23 13:33 MCV 89.7 fL (80.0-100.0) 05/13/23 13:33 MCH 29.9 pg (27.0-34.0) 05/13/23 13:33 MCHC 33.3 g/dL (33.0-35.0) 05/13/23 13:33 RDW 14.3 % (11.6-16.5) 05/13/23 13:33 Plt Count 131 X10^3/uL (150.0-450.0) L 05/13/23 13:33 MPV 8.5 fL (7.4-11.0) 05/13/23 13:33 Neut % (Auto) 78.5 % (42.0-75.0) H 05/13/23 13:33 Lymph % (Auto) 11.2 % (21.0-51.0) L 05/13/23 13:33 [place] % (Auto) 7.3 % (0.0-13.0) 05/13/23 13:33 Eos % (Auto) 2.3 % (0.9-2.9) 05/13/23 13:33 Baso % (Auto) 0.7 % (0.2-1.0) 05/13/23 13:33 Neut # (Auto) 4.2 x10^3/uL (2.2-4.8) 05/13/23 13:33 Lymph # (Auto) 0.6 X10^3/uL (1.3-2.9) L 05/13/23 13:33 [place] # (Auto) 0.4 x10^3/uL (0.3-0.8) 05/13/23 13:33 Eos # (Auto) 0.1 x10^3/uL (0.0-0.2) 05/13/23 13:33 Baso # (Auto) 0.0 X10^3/uL (0.0-0.1) 05/13/23 13:33 Absolute Nucleated RBC 0.0 /100WBC 05/13/23 13:33 Sodium 142 mmol/L (136-145) 05/13/23 13:33 Corrected Sodium 144 mmol/L (136-145) 05/13/23 13:33 Potassium 4.3 mmol/L (3.5-5.1) 05/13/23 13:33 Chloride 104 mmol/L (98-107) 05/13/23 13:33 Carbon Dioxide 38.4 mmol/L (21-32) H 05/13/23 13:33 BUN 19 mg/dL (7-18) H 05/13/23 13:33 Creatinine 1.03 mg/dL (0.70-1.30) 05/13/23 13:33 Est GFR (MDRD) Af Amer > 60 (>60) 05/13/23 13:33 Est GFR (MDRD) Non-Af > 60 (>60) 05/13/23 13:33 Glucose 174 mg/dL (65-99) H 05/13/23 13:33 Calcium 8.1 mg/dL (8.5-10.1) L 05/13/23 13:33 Corrected Calcium 9.1 mg/dL (8.5-10.1) 05/13/23 13:33 Total Bilirubin 0.60 mg/dL (0.2-1.0) 05/13/23 13:33 AST 15 Units/L (15-37) 05/13/23 13:33 ALT 19 Units/L (12-78) 05/13/23 13:33 Alkaline Phosphatase 86 Units/L (46-116) 05/13/23 13:33 Troponin I High Sens 25.2 ng/L (4.0-60.0) 05/13/23 13:33 B-Natriuretic Peptide 53.3 pg/mL (0-79) 05/13/23 13:33 Total Protein 6.1 g/dL (6.4-8.2) L 05/13/23 13:33 Albumin 2.8 g/dL (3.4-5.0) L 05/13/23 13:33 Globulin 3.3 g/dL (2.5-4.5) 05/13/23 13:33 Albumin/Globulin Ratio 0.8 Ratio (1.1-2.1) L 05/13/23 13:33 Specimen Type Random urine 05/13/23 13:45 Urine Color Yellow (YELLOW) 05/13/23 13:45 Urine Appearance Clear (CLEAR) 05/13/23 13:45 Urine pH 7.0 (5.0 - 8.0) 05/13/23 13:45 Ur Specific [place] 1.010 (1.000-1.030) 05/13/23 13:45 Urine Protein 3+ (NEGATIVE) 05/13/23 13:45 Urine Glucose (UA) 2+ (NEGATIVE) 05/13/23 13:45 Urine Ketones Negative (NEGATIVE) 05/13/23 13:45 Urine Blood 2+ (NEGATIVE) 05/13/23 13:45 Urine Nitrite Negative (NEGATIVE) 05/13/23 13:45 Urine Bilirubin Negative (NEGATIVE) 05/13/23 13:45 Urine Urobilinogen Normal (NORMAL) 05/13/23 13:45 Ur Leukocyte Esterase Negative (NEGATIVE) 05/13/23 13:45 Urine RBC 5-10 /HPF (0-3) A 05/13/23 13:45 Urine WBC 0-2 /HPF (0-5) 05/13/23 13:45 Ur Squamous Epith Cells Rare /HPF (NEGATIVE) 05/13/23 13:45 Urine Bacteria Trace /HPF (NEGATIVE) 05/13/23 13:45 Ur Culture Indicated? No/not indicated 05/13/23 13:45 XRAY XRAY Interpreted by: Both X-ray Results: + COPD canges, + pulmonary vascular congestion EKG Rate: 76 [place]: Normal Rhythm: Afib ST: Nonsp Opioid Opioid Risk Tool Age ([place] box if 16-45): No History of Preadolescent Sexual Abuse: No Total: 0 Total Score Risk Category: Low Risk Copyright: Sheldon GARCIA predicting aberrant behaviors Discharge Plan Diagnosis Discharge Problem: COPD exacerbation Discharge Plan Patient Disposition: ADMITTED INPATIENT Condition: Stable
[2023-05-13 13:09] VITALS: BMI 36.5
--- NOTE | 2023-05-13 13:32 | EKG ---
Test Reason : dyspnea Blood Pressure : */* mmHG Vent. Rate : 76 BPM Atrial Rate : * BPM P-R Int : * ms QRS Dur : 86 ms QT Int : 380 ms P-R-T Axes : * 37 71 degrees QTc Int : 427 ms Atrial fibrillation Abnormal ECG When compared with ECG of 05-APR-2023 16:06, No significant change was found Confirmed by Luis E Olson ([id number]) on 05/14/2023 9:01:18 AM Referred By: Confirmed By: Luis E Olson
[2023-05-13 13:45] LABS: BASOPHILS % (AUTO) 0.7 % (0.2-1.0); EOSINOPHILS # (AUTO) 0.1 x10^3/uL (0.0-0.2); EOSINOPHILS % (AUTO) 2.3 % (0.9-2.9); HEMATOCRIT 34.6 % (42.0-54.0); HEMOGLOBIN 11.5 g/dL (13.5-18.0); LYMPHOCYTES # (AUTO) 0.6 X10^3/uL (1.3-2.9); LYMPHOCYTES % (AUTO) 11.2 % (21.0-51.0); MEAN CORPUSCULAR HEMOGLOBIN 29.9 pg (27.0-34.0); MEAN CORPUSCULAR HGB CONC 33.3 g/dL (33.0-35.0); MEAN CORPUSCULAR VOLUME 89.7 fL (80.0-100.0); MEAN PLATELET VOLUME 8.5 fL (7.4-11.0); MONOCYTES # (AUTO) 0.4 x10^3/uL (0.3-0.8); MONOCYTES % (AUTO) 7.3 % (0.0-13.0); NEUTROPHILS # (AUTO) 4.2 x10^3/uL (2.2-4.8); NEUTROPHILS % (AUTO) 78.5 % (42.0-75.0); PLATELET COUNT 131 X10^3/uL (150.0-450.0); RED BLOOD COUNT 3.85 X10^6/uL (4.7-6.0); RED CELL DISTRIBUTION WIDTH 14.3 % (11.6-16.5); WHITE BLOOD COUNT 5.3 X10^3/uL (3.6-10.0)
--- NOTE | 2023-05-13 13:53 | RAD ---
HISTORYShortness of breathSTUDYSingle-view [id number] trachea is midline. The cardiac silhouette is enlarged with a tortuous thoracic aorta . Increased interstitial changes with prominent vascular markings are observed consistent with underlying CHF.. The bony thorax is unremarkable.IMPRESSIONIncreased interstitial changes with prominent vascular markings are observed consistent with underlying CHF.Electronically signed by: HUA LEE (May 13, 2023 13:52:02)
[2023-05-13] MEDS ORDERED: ZOFRAN INJ 4 MG VIAL IVP ONE (14:19)
[2023-05-13] MEDS ORDERED: LASIX IVP ONE ×2 (14:19→14:20)
[2023-05-13 14:20] LABS: BILIRUBIN,URINE NEGATIVE (NEGATIVE); BLOOD/HEMOGLOBIN,URINE 2+ (NEGATIVE); GLUCOSE, URINE 2+ (NEGATIVE); KETONES,URINE NEGATIVE (NEGATIVE); LEUKOCYTE ESTERASE ,URINE NEGATIVE (NEGATIVE); NITRITES,URINE NEGATIVE (NEGATIVE); PROTEIN,URINE 3+ (NEGATIVE); UROBILINOGEN,URINE NORMAL (NORMAL)
[2023-05-13] MEDS ORDERED: ZOFRAN INJ 4 MG VIAL ONE (14:20)
[2023-05-13 14:26] LABS: ALANINE AMINOTRANSFERASE 19 Units/L (12-78); ALBUMIN 2.8 g/dL (3.4-5.0); ALKALINE PHOSPHATASE 86 Units/L (46-116); ASPARTATE AMINO TRANSFERASE 15 Units/L (15-37); BLOOD UREA NITROGEN 19 mg/dL (7-18); CALCIUM 8.1 mg/dL (8.5-10.1); CARBON DIOXIDE 38.4 mmol/L (21-32); CHLORIDE 104 mmol/L (98-107); COR CA(FOR HYPOALB) 9.1 mg/dL (8.5-10.1); COR NA(FOR HYPERGLY) 144 mmol/L (136-145); CREATININE 1.03 mg/dL (0.70-1.30); GLUCOSE 174 mg/dL (65-99); POTASSIUM 4.3 mmol/L (3.5-5.1); SODIUM 142 mmol/L (136-145); TOTAL PROTEIN 6.1 g/dL (6.4-8.2); eGFR NON BLACK RACES > 60 (>60)
[2023-05-13 14:31] LABS: APPEARANCE,URINE CLEAR (CLEAR); BACTERIA,URINE TRACE /HPF (NEGATIVE); COLOR,URINE YELLOW (YELLOW); SQUAMOUS EPITHELIAL CELL,UR RARE /HPF (NEGATIVE)
[2023-05-13] MEDS ORDERED: DUONEB 0.5 MG/3 MG (3 mL) NEB ONE ×2 (16:05→16:23)
[2023-05-13 17:04] LABS: ABG BASE EXCESS 11.5 mmol/L (-2.0-2.0)
[2023-05-13 17:05] LABS: ABG ALLEN TEST POS; ABG HCO3 37.5 mmol/L (22-26)
[2023-05-13] MEDS: DUONEB 0.5 MG/3 MG (3 mL) NEB SCH ×2 (17:26→21:25)
[2023-05-13] MEDS ORDERED: SOLU-Medrol 40 MG VIAL ONE (20:45)
[2023-05-13] MEDS: SOLU-Medrol 40 MG VIAL IVP SCH (21:02)
[2023-05-13] MEDS: PULMICORT NEB TX 0.5 MG NEB SCH (21:25)
[2023-05-13] MEDS: NovoLIN R (or HumuLIN R) SUBCUT PRN (21:32)
[2023-05-14] MEDS: DUONEB 0.5 MG/3 MG (3 mL) NEB SCH ×6 (00:40→21:00)
[2023-05-14] MEDS: SOLU-Medrol 40 MG VIAL IVP SCH ×3 (05:17→22:42)
[2023-05-14 05:24] LABS: BASOPHILS % (AUTO) 0.2 % (0.2-1.0); HEMATOCRIT 36.8 % (42.0-54.0); HEMOGLOBIN 12.3 g/dL (13.5-18.0); LYMPHOCYTES # (AUTO) 0.2 X10^3/uL (1.3-2.9); LYMPHOCYTES % (AUTO) 3.6 % (21.0-51.0); MEAN CORPUSCULAR HEMOGLOBIN 29.7 pg (27.0-34.0); MEAN CORPUSCULAR HGB CONC 33.4 g/dL (33.0-35.0); MEAN CORPUSCULAR VOLUME 88.7 fL (80.0-100.0); MEAN PLATELET VOLUME 9.4 fL (7.4-11.0); MONOCYTES # (AUTO) 0.1 x10^3/uL (0.3-0.8); NEUTROPHILS # (AUTO) 5.7 x10^3/uL (2.2-4.8); NEUTROPHILS % (AUTO) 95.2 % (42.0-75.0); PLATELET COUNT 142 X10^3/uL (150.0-450.0); RED BLOOD COUNT 4.15 X10^6/uL (4.7-6.0); RED CELL DISTRIBUTION WIDTH 14.6 % (11.6-16.5)
[2023-05-14 05:36] LABS: ALANINE AMINOTRANSFERASE 21 Units/L (12-78); ALBUMIN 3.1 g/dL (3.4-5.0); ALKALINE PHOSPHATASE 96 Units/L (46-116); ASPARTATE AMINO TRANSFERASE 15 Units/L (15-37); BLOOD UREA NITROGEN 26 mg/dL (7-18); CALCIUM 8.4 mg/dL (8.5-10.1); CARBON DIOXIDE 34.4 mmol/L (21-32); CHLORIDE 99 mmol/L (98-107); COR CA(FOR HYPOALB) 9.1 mg/dL (8.5-10.1); COR NA(FOR HYPERGLY) 147 mmol/L (136-145); CREATININE 1.41 mg/dL (0.70-1.30); GLUCOSE 460 mg/dL (65-99); PLATELET MORPHOLOGY COMMENT NORMAL (NORMAL); POTASSIUM 4.5 mmol/L (3.5-5.1); SODIUM 138 mmol/L (136-145); TOTAL PROTEIN 6.9 g/dL (6.4-8.2); eGFR NON BLACK RACES 52 (>60)
[2023-05-14] MEDS: NovoLIN R (or HumuLIN R) SUBCUT PRN ×4 (05:47→22:43)
[2023-05-14] MEDS: PULMICORT NEB TX 0.5 MG NEB SCH ×2 (08:52→21:00)
--- NOTE | 2023-05-14 10:38 | DR.H&P ---
H&P - History & Physical for Day of: H&P Date: 05/13/23 - Chief Complaint Chief Complaint: SOB - History of Present Illness History of Present Illness: 73 y/o male presents for evaluation. Brought in via EMS. Has h/o COPD, having several exacerbations ovre the past month, with 4 ER visits, and admission. Denies cough, just can't get enough air. No report of fever. No worsening swelling of legs. Denies bowel or bladder complaints. Denies chest pain. - Past Medical History Past Medical History: Hypertension, Dyslipidemia, Diabetes, COPD Additional Medical History: PVD - Past Surgical History Surgical History: Joint Replacement, Ortho Surgery - Family History Family Medical History: Diabetes Mellitus, Cancer, [place], Coronary Artery Disease, Heart Failure, Hypertension - Social History Does patient currently use any type of tobacco product: No Have you used tobacco products in the last 12 months: No Type of Tobacco Use: None Does any household member use tobacco: No Alcohol Use: None Drug Use: None - Review of Systems Constitutional: Weakness, Malaise Eyes: No Symptoms Reported ENT: No Symptoms Reported Respiratory: Shortness of Breath, SOB with Excertion, Sputum, Wheezing Cardiovascular: Edema Gastrointestinal: No Symptoms Reported Genitourinary: No Symptoms Reported Musculoskeletal: Back Pain, Leg Pain Skin: Wound Neurological: No Symptoms Reported - Physical Exam Vital Signs: Vital Signs Temperature 97.8 F Temperature 97.8 F Pulse Rate [Left] 66 Pulse Rate [Left] 66 Pulse Rate 66 Respiratory Rate 20 Respiratory Rate 18 Blood Pressure [Left Arm] 145/65 Blood Pressure [Left Arm] 130/80 O2 Sat by Pulse Oximetry 97 O2 Sat by Pulse Oximetry 95 O2 Sat by Pulse Oximetry 96 05/14/23 08:52 05/14/23 08:52 05/14/23 08:00 Temperature 97.8 F Temperature Source Oral Pulse Rate 66 Pulse Rate [Left] 66 Respiratory Rate 20 Respiratory Depth Normal Respiratory Effort Normal Non-Labored Respiratory Pattern Normal O2 Sat by Pulse Oximetry 97 95 Oxygen Delivery Method Nasal Cannula Nasal Cannula Oxygen Flow Rate 3 3 FIO2% 32 Blood Pressure [Left Arm] 145/65 Blood Pressure Mean [Left Arm] 91 Blood Pressure Source [Left Arm] Automatic Cuff Oriented: Normal Eyes: Normal Ear: Normal Nose: Normal Throat: Normal Respiratory: Wheezes Throughout Cardiovascular: Normal, Edema : Normal Auscultation: Bowel Sounds: Normal Palpation: Normal Tenderness: Normal Skin: Decreased Turgur, Red, Wound (RLE ULCERATION ) Musculoskeletal: Normal, Right, Leg, Back:Lumbar, Tender Psychiatric: Anxiety Affect: Anxious Speech Pattern: Clear, Appropriate - Assessment/Plan (1) COPD exacerbation Status: Acute Plan: ADMIT, RESP PANEL SWAB ON ADMISSION. CXR Q AM. RESP CONSULT WITH SPUTUM CULTURE. SUPPLEMENTAL O2, ABG. CARDIAC MONITORING, I&OS. BS AND BP CONTROL. WOUND CULTURES (2) Hypoxia Status: Acute (3) CHF (congestive heart failure) Qualifiers: Status: Acute (4) Venous stasis ulcers of both lower extremities Status: Acute (5) Hypertension Qualifiers: Status: Chronic - Allergies Allergies/Adverse Reactions: Allergies Allergy/AdvReac Type Severity Reaction Status Date / Time No Known Drug Allergies Allergy Verified 05/13/23 17:11 - Medications Home Medications: Home Medications Medication Instructions Recorded Confirmed aspirin 81 mg tablet,delayed 81 mg PO DAILY 05/13/23 05/13/23 release (Ecotrin Low Strength) furosemide 20 mg tablet 20 mg PO QPM 05/13/23 05/13/23 irbesartan 150 1 tab PO QDAY 05/13/23 05/13/23 mg-hydrochlorothiazide 12.5 mg tablet meloxicam 15 mg tablet 15 mg PO DAILY 05/13/23 05/13/23 pioglitazone 30 mg tablet 30 mg PO DAILY 05/13/23 05/13/23 simvastatin 40 mg tablet 20 mg PO QPM 05/13/23 05/13/23
[2023-05-14] MEDS: NS 1,000 ML IV 1,000 ML IV SCH (12:17)
[2023-05-14] MEDS: ZOCOR TAB 40 MG PO SCH (22:42)
[2023-05-15] MEDS: DUONEB 0.5 MG/3 MG (3 mL) NEB SCH ×6 (01:00→21:13)
[2023-05-15] MEDS: SOLU-Medrol 40 MG VIAL IVP SCH ×3 (05:31→21:51)
[2023-05-15 05:41] LABS: BASOPHILS % (AUTO) 0 % (0.2-1.0); HEMATOCRIT 33.4 % (42.0-54.0); HEMOGLOBIN 11.4 g/dL (13.5-18.0); LYMPHOCYTES # (AUTO) 0.2 X10^3/uL (1.3-2.9); MEAN CORPUSCULAR HEMOGLOBIN 30.1 pg (27.0-34.0); MEAN CORPUSCULAR VOLUME 88.4 fL (80.0-100.0); MEAN PLATELET VOLUME 9.2 fL (7.4-11.0); MONOCYTES # (AUTO) 0.3 x10^3/uL (0.3-0.8); MONOCYTES % (AUTO) 2.9 % (0.0-13.0); NEUTROPHILS # (AUTO) 9.9 x10^3/uL (2.2-4.8); NEUTROPHILS % (AUTO) 95.1 % (42.0-75.0); PLATELET COUNT 135 X10^3/uL (150.0-450.0); RED BLOOD COUNT 3.77 X10^6/uL (4.7-6.0); RED CELL DISTRIBUTION WIDTH 14.5 % (11.6-16.5); WHITE BLOOD COUNT 10.4 X10^3/uL (3.6-10.0)
[2023-05-15] MEDS: NovoLIN R (or HumuLIN R) SUBCUT PRN ×4 (05:50→21:51)
[2023-05-15 05:53] LABS: ALANINE AMINOTRANSFERASE 22 Units/L (12-78); ALBUMIN 2.8 g/dL (3.4-5.0); ALKALINE PHOSPHATASE 80 Units/L (46-116); ASPARTATE AMINO TRANSFERASE 16 Units/L (15-37); BLOOD UREA NITROGEN 37 mg/dL (7-18); CALCIUM 7.8 mg/dL (8.5-10.1); CARBON DIOXIDE 33.1 mmol/L (21-32); CHLORIDE 100 mmol/L (98-107); COR CA(FOR HYPOALB) 8.8 mg/dL (8.5-10.1); COR NA(FOR HYPERGLY) 146 mmol/L (136-145); CREATININE 1.33 mg/dL (0.70-1.30); GLUCOSE 385 mg/dL (65-99); POTASSIUM 4.6 mmol/L (3.5-5.1); SODIUM 139 mmol/L (136-145); TOTAL PROTEIN 6.1 g/dL (6.4-8.2); eGFR NON BLACK RACES 56 (>60)
[2023-05-15 05:58] LABS: PLATELET MORPHOLOGY COMMENT NORMAL (NORMAL)
--- NOTE | 2023-05-15 06:22 | RAD ---
HISTORYCHF, COPDSTUDYCHEST, 1 [id number].TECHNIQUEPA or AP view of the chestFINDINGSThe cardiac silhouette is stably enlarged. Mediastinal contours appear stable. Improved interstitial opacities. Blunted right costophrenic sulcus and thickened right minor fissure consistent with pleural effusion. No pneumothorax.IMPRESSIONBlunted right costophrenic sulcus can be seen with small pleural effusion or pleuro-parynchemal scarring. Improved pulmonary edema.Electronically signed by: Rojas Pike (May 15, 2023 06:21:37)
[2023-05-15] MEDS: ASPIRIN EC 81 MG PO SCH (08:50)
[2023-05-15] MEDS: MOBIC TAB 15 MG PO SCH (08:51)
[2023-05-15] MEDS ORDERED: ACTOS PO SCH (09:00)
[2023-05-15] MEDS: PULMICORT NEB TX 0.5 MG NEB SCH ×2 (09:08→21:13)
[2023-05-15] MEDS: ROBITUSSIN DM PO SCH ×2 (16:58→21:50)
[2023-05-15] MEDS: ZOCOR TAB 40 MG PO SCH (21:50)
[2023-05-16] MEDS: DUONEB 0.5 MG/3 MG (3 mL) NEB SCH ×6 (00:32→20:12)
[2023-05-16 05:25] LABS: BASOPHILS % (AUTO) 0.1 % (0.2-1.0); HEMATOCRIT 32.5 % (42.0-54.0); HEMOGLOBIN 11.2 g/dL (13.5-18.0); LYMPHOCYTES # (AUTO) 0.2 X10^3/uL (1.3-2.9); LYMPHOCYTES % (AUTO) 1.8 % (21.0-51.0); MEAN CORPUSCULAR HEMOGLOBIN 30.2 pg (27.0-34.0); MEAN CORPUSCULAR HGB CONC 34.5 g/dL (33.0-35.0); MEAN CORPUSCULAR VOLUME 87.5 fL (80.0-100.0); MONOCYTES # (AUTO) 0.3 x10^3/uL (0.3-0.8); NEUTROPHILS # (AUTO) 10.2 x10^3/uL (2.2-4.8); NEUTROPHILS % (AUTO) 95.1 % (42.0-75.0); PLATELET COUNT 138 X10^3/uL (150.0-450.0); RED BLOOD COUNT 3.72 X10^6/uL (4.7-6.0); RED CELL DISTRIBUTION WIDTH 14.7 % (11.6-16.5); WHITE BLOOD COUNT 10.7 X10^3/uL (3.6-10.0)
[2023-05-16] MEDS: SOLU-Medrol 40 MG VIAL IVP SCH ×3 (05:37→21:05)
[2023-05-16 05:43] LABS: ALANINE AMINOTRANSFERASE 27 Units/L (12-78); ALBUMIN 2.8 g/dL (3.4-5.0); ALKALINE PHOSPHATASE 73 Units/L (46-116); ASPARTATE AMINO TRANSFERASE 16 Units/L (15-37); BLOOD UREA NITROGEN 40 mg/dL (7-18); CALCIUM 7.6 mg/dL (8.5-10.1); CARBON DIOXIDE 33.5 mmol/L (21-32); CHLORIDE 100 mmol/L (98-107); COR CA(FOR HYPOALB) 8.6 mg/dL (8.5-10.1); COR NA(FOR HYPERGLY) 142 mmol/L (136-145); CREATININE 1.21 mg/dL (0.70-1.30); GLUCOSE 274 mg/dL (65-99); POTASSIUM 4.5 mmol/L (3.5-5.1); SODIUM 138 mmol/L (136-145); TOTAL PROTEIN 5.9 g/dL (6.4-8.2); eGFR NON BLACK RACES > 60 (>60)
[2023-05-16 06:03] LABS: BAND NEUTROPHILS % 1 % (0-10); PLATELET MORPHOLOGY COMMENT NORMAL (NORMAL)
[2023-05-16] MEDS: NovoLIN R (or HumuLIN R) SUBCUT PRN ×4 (06:15→21:28)
[2023-05-16] MEDS: ROBITUSSIN DM PO SCH ×4 (08:59→21:05)
[2023-05-16] MEDS: MOBIC TAB 15 MG PO SCH (08:59)
[2023-05-16] MEDS: ASPIRIN EC 81 MG PO SCH (08:59)
[2023-05-16] MEDS: LOVENOX INJ 40 MG SYR SC SCH (09:01)
[2023-05-16] MEDS: PULMICORT NEB TX 0.5 MG NEB SCH ×2 (09:08→20:12)
[2023-05-16] MEDS ORDERED: MUCOMYST 20% 200 MG/ML PO SCH (10:15)
[2023-05-16] MEDS ORDERED: OMNIPAQUE 350 mg/mL 50 mL BTL 50 ML ONE (10:55)
[2023-05-16] MEDS ORDERED: OMNIPAQUE 350 mg/mL 100 mL BTL 100 ML ONE (10:55)
[2023-05-16] MEDS: VSL#3 PO SCH (12:36)
[2023-05-16] MEDS: RIFADIN PO SCH ×2 (12:36→21:06)
[2023-05-16] MEDS: GENTAMICIN TOPICAL OINT TOP SCH ×2 (12:37→21:29)
[2023-05-16] MEDS: ACTOS PO SCH (12:37)
[2023-05-16] MEDS: NS 1,000 ML IV 1,000 ML IV SCH ×2 (12:37→21:27)
[2023-05-16] MEDS: ZOSYN VIAL 3.375 GRAMS 3.375 G in NS 100 ML IV 100 ML IV SCH ×4 (12:37→21:05)
[2023-05-16] MEDS: ZOCOR TAB 40 MG PO SCH (21:06)
--- NOTE | 2023-05-16 22:34 | PCM.PROG ---
Progress Note - Progress Note for Day of Date of Exam: 05/16/23 - Subjective Subjective: IS CURRENTLY INPATIENT STATUS FOR TREATMENT OF COPD EXACERBATION, CONGESTION HEART FAILURE, AND PERIPHERAL VASCULAR DISEASE WITH MULTIPLE VENOUS STASIS ULCERS. HE HAS A PMH OF HTN, COPD, DM II, DYSLIPIDEMIA, LEFT HIP REPLACEMENT, AND BILATERAL CATARACT SURGERY. TODAY, HE IS ALERT AND ORIENTED, LYING IN BED ON MORNING ROUNDS. HE CONTINUES WITH INTERMITTENT SHORTNESS OF BREATH, A PRODUCTIVE COUGH, AND BILATERAL LOWER EXTREMITY PAIN. ON EXAMINATION, HEART IS REGULAR IN RATE AND RHYTHM. BILATERAL LUNGS ARE NOTED WITH DIMINISHED LUNG SOUNDS THROUGHOUT. ABDOMEN IS ROUND, SOFT, AND NON-TENDER WITH NORMAL BOWEL SOUNDS NOTED IN ALL QUADRANTS. ERYTHEMA AND NON-PITTING EDEMA NOTED TO BILATERAL LOWER EXTREMITIES. MULTIPLE VENOUS STASIS ULCERS NOTED TO BILATERAL LEGS. THERE IS MODERATED DRAINAGE FROM THE LARGEST WOUND TO THE RIGHT MEDIAL LOWER LEG. HIS VITALS THIS MORNING ARE: 98.0-85-20-96%-179/77. SATURATIONS HAVE BEEN IN THE 90s THROUGHOUT THE NIGHT. HE IS CURRENTLY USING OXYGEN VIA NASAL CANNULA AT 2LPM. LABS WERE OBTAINED. WBC 10.7, RBC 3.72, HGB 11.2, HCT 32.5, PLT COUNT 138, SODIUM 138, POTASSIUM 4.5, CHLORIDE 100, CARBON DIOXIDE 33.5, BUN 40, CREATININE 1.21, GLUCOSE 274, CALCIUM 7.6, AST 16, ALT 27, ALK PHOS 73, BNP 65, TOTAL PROTEIN 5.9, ALBUMIN 2.8. BLOOD CULTURES ARE PENDING. RIGHT AND LEFT LEG WOUND CULTURES WERE POSITIVE FOR GROWTH OF STAPHYLOCOCCUS AUREUS. AN ECHO WAS OBTAINED IN FEBRUARY AND REVEALED AN EJECTION FRACTION OF 56%, MILD PULMONARY HYPERTENSION, RVSP 33mmHg. CHEST XRAY ON 05/14/23 REVEALED: Blunted right costophrenic sulcus can be seen with small pleural effusion or pleuro- parynchemal scarring. Improved pulmonary edema. HE IS CURRENTLY RECEIVING NORMAL SALINE AT KVO, SOLU-MEDROL 40MG IV Q8H, DUONEBS Q4H, PULMICORT NEBS BID, LOVENOX 40MG SC DAILY, OTBS ACHS, HUMULIN R SLIDING SCALE, ECOTRIN 81MG HS, ACTOS 30MG DAILY, SIMVASTATIN 40MG HS, ROBITUSSIN DM 10ML QID, VSL 2 CAPS DAILY, ZOCOR 20MG HS. TODAY, WE WILL ADD MUCOMYST 200MG PO BID X 3 DAYS, ZOSYN 3.375G IV TID, RIFAMPIN 300MG BID, AND GENTAMYCIN OINTMENT BID. WE WILL OBTAIN A CTA OF [place] ATERAL LOWER EXTREMITIES WITH AND WITHOUT CONTRAST. OTHERWISE, WE WILL FOLLOW-UP WITH AM LABS AND CONTINUE TO MONITOR. TIME SPENT ON CLINICAL ASSESSMENT, REVIEWING LABS AND IMAGING, DECISION MAKING, AND DOCUMENTATION GREATER THAN 45 MINUTES. - Past Medical Family Social History Past Med/Fam/Surg Hx: No changes since H&P Allergies: Allergies No Known Drug Allergies Allergy (Verified 05/13/23 17:11) - Review of Systems ROS: No change since H&P - Vital Signs and I&O's Vital Signs: Vital Signs Temperature 97.1 F Temperature 97.9 F Pulse Rate [Left] 75 Pulse Rate [Left] 71 Pulse Rate 74 Respiratory Rate 20 Respiratory Rate 20 Blood Pressure [Left Arm] 148/69 Blood Pressure [Left Arm] 155/71 O2 Sat by Pulse Oximetry 99 O2 Sat by Pulse Oximetry 95 O2 Sat by Pulse Oximetry 94 05/16/23 20:12 05/16/23 20:12 05/16/23 20:00 Temperature 97.1 F L Temperature Source Oral Pulse Rate 74 Pulse Rate [Left] 75 Respiratory Rate 20 Respiratory Depth Normal Respiratory Effort Normal Non-Labored Respiratory Pattern Normal O2 Sat by Pulse Oximetry 99 95 Oxygen Delivery Method Nasal Cannula Nasal Cannula Oxygen Flow Rate 2 2 FIO2% 28 Blood Pressure [Left Arm] 148/69 Blood Pressure Mean [Left Arm] 95 Blood Pressure Source [Left Arm] Automatic Cuff Intake and Output: Intake & Output 05/14/23 05/15/23 05/16/23 05/17/23 11:59 11:59 11:59 11:59 Intake Total 390 / 390 1753 / 1753 2478 / 2478 1092 / 1092 Output Total 1245 / 1245 1950 / 1950 2320 / 2320 1250 / 1250 Balance -855 / -855 -197 / -197 158 / 158 -158 / -158 - Physical Exam Oriented: Normal Eyes: Normal Ear: Normal Nose: Normal Throat: Normal Respiratory: Generalized, Diminished Cardiovascular: Normal, Edema (BILATERAL LOWER EXTREMITIES ) : Normal Auscultation: Bowel Sounds: Normal Palpation: Normal Tenderness: Normal Skin: Decreased Turgur, Red, Wound (BILATERAL LOWER EXTREMITY ULCERATION ) Musculoskeletal: Normal, Right, Left, Leg, Back:Lumbar, Tender Psychiatric: Anxiety Affect: Anxious Speech Pattern: Clear, Appropriate - Laboratory and Diagnostics Result Diagrams: 05/16/23 04:48 05/16/23 04:48 Labs: 05/13/23 19:24 Leg - Right Wound Gram Stain - Final 05/13/23 19:24 Leg - Right Wound Culture - Final Staphylococcus Aureus 05/13/23 19:24 Leg - Left Wound Gram Stain - Final 05/13/23 19:24 Leg - Left Wound Culture - Final Staphylococcus Aureus Laboratory WBC 10.7 X10^3/uL (3.6-10.0) H 05/16/23 04:48 RBC 3.72 X10^6/uL (4.7-6.0) L 05/16/23 04:48 Hgb 11.2 g/dL (13.5-18.0) L 05/16/23 04:48 Hct 32.5 % (42.0-54.0) L 05/16/23 04:48 MCV 87.5 fL (80.0-100.0) 05/16/23 04:48 MCH 30.2 pg (27.0-34.0) 05/16/23 04:48 MCHC 34.5 g/dL (33.0-35.0) 05/16/23 04:48 RDW 14.7 % (11.6-16.5) 05/16/23 04:48 Plt Count 138 X10^3/uL (150.0-450.0) L 05/16/23 04:48 Plt Count Comment Decreased (ADEQUATE) 05/16/23 04:48 MPV 9.0 fL (7.4-11.0) 05/16/23 04:48 Neut % (Auto) 95.1 % (42.0-75.0) H 05/16/23 04:48 Lymph % (Auto) 1.8 % (21.0-51.0) L 05/16/23 04:48 [place] % (Auto) 3.0 % (0.0-13.0) 05/16/23 04:48 Eos % (Auto) 0.0 % (0.9-2.9) L 05/16/23 04:48 Baso % (Auto) 0.1 % (0.2-1.0) L 05/16/23 04:48 Neut # (Auto) 10.2 x10^3/uL (2.2-4.8) H 05/16/23 04:48 Lymph # (Auto) 0.2 X10^3/uL (1.3-2.9) L 05/16/23 04:48 [place] # (Auto) 0.3 x10^3/uL (0.3-0.8) 05/16/23 04:48 Eos # (Auto) 0.0 x10^3/uL (0.0-0.2) 05/16/23 04:48 Baso # (Auto) 0.0 X10^3/uL (0.0-0.1) 05/16/23 04:48 Absolute Nucleated RBC 0.0 /100WBC 05/16/23 04:48 Total Counted 100 05/16/23 04:48 Neutrophils % (Manual) 95 % (39-76) H 05/16/23 04:48 Band Neutrophils % 1 % (0-10) 05/16/23 04:48 Lymphocytes % (Manual) 1 % (13-43) L 05/16/23 04:48 Monocytes % (Manual) 3 % (4-9) L 05/16/23 04:48 Plt Morphology Comment Normal (NORMAL) 05/16/23 04:48 RBC Morphology Normal (NORMAL) 05/16/23 04:48 Sample Site Rrad 05/13/23 17:00 ABG pH 7.450 (7.35-7.45) 05/13/23 17:00 ABG pCO2 54.0 mmHg (35.0-45.0) H* 05/13/23 17:00 ABG pO2 70.0 mmHg (80.0-100.0) L 05/13/23 17:00 ABG HCO3 37.5 mmol/L (22-26) H* 05/13/23 17:00 ABG O2 Saturation 95.0 % (90-100) 05/13/23 17:00 ABG Base Excess 11.5 mmol/L (-2.0-2.0) H 05/13/23 17:00 [place] Test Pos 05/13/23 17:00 A-a Gradient 119.0 mmHg 05/13/23 17:00 FiO2 36.0 05/13/23 17:00 Blood Gas Comments Yodit well ms/eb 05/13/23 17:00 Sodium 138 mmol/L (136-145) 05/16/23 04:48 Corrected Sodium 142 mmol/L (136-145) 05/16/23 04:48 Potassium 4.5 mmol/L (3.5-5.1) 05/16/23 04:48 Chloride 100 mmol/L (98-107) 05/16/23 04:48 Carbon Dioxide 33.5 mmol/L (21-32) H 05/16/23 04:48 BUN 40 mg/dL (7-18) H 05/16/23 04:48 Creatinine 1.21 mg/dL (0.70-1.30) 05/16/23 04:48 Est GFR (MDRD) Af Amer > 60 (>60) 05/16/23 04:48 Est GFR (MDRD) Non-Af > 60 (>60) 05/16/23 04:48 Glucose 274 mg/dL (65-99) H 05/16/23 04:48 POC Glucose (mg/dL) 387 mg/dL (65-99) H 05/16/23 19:49 Hemoglobin A1c 8.0 % 05/14/23 04:21 Calcium 7.6 mg/dL (8.5-10.1) L 05/16/23 04:48 Corrected Calcium 8.6 mg/dL (8.5-10.1) 05/16/23 04:48 Total Bilirubin 0.30 mg/dL (0.2-1.0) 05/16/23 04:48 AST 16 Units/L (15-37) 05/16/23 04:48 ALT 27 Units/L (12-78) 05/16/23 04:48 Alkaline Phosphatase 73 Units/L (46-116) 05/16/23 04:48 Troponin I High Sens 25.2 ng/L (4.0-60.0) 05/13/23 13:33 B-Natriuretic Peptide 65.0 pg/mL (0-79) 05/16/23 04:48 Total Protein 5.9 g/dL (6.4-8.2) L 05/16/23 04:48 Albumin 2.8 g/dL (3.4-5.0) L 05/16/23 04:48 Globulin 3.1 g/dL (2.5-4.5) 05/16/23 04:48 Albumin/Globulin Ratio 0.9 Ratio (1.1-2.1) L 05/16/23 04:48 Specimen Type Random urine 05/13/23 13:45 Urine Color Yellow (YELLOW) 05/13/23 13:45 Urine Appearance Clear (CLEAR) 05/13/23 13:45 Urine pH 7.0 (5.0 - 8.0) 05/13/23 13:45 Ur Specific [place] 1.010 (1.000-1.030) 05/13/23 13:45 Urine Protein 3+ (NEGATIVE) 05/13/23 13:45 Urine Glucose (UA) 2+ (NEGATIVE) 05/13/23 13:45 Urine Ketones Negative (NEGATIVE) 05/13/23 13:45 Urine Blood 2+ (NEGATIVE) 05/13/23 13:45 Urine Nitrite Negative (NEGATIVE) 05/13/23 13:45 Urine Bilirubin Negative (NEGATIVE) 05/13/23 13:45 Urine Urobilinogen Normal (NORMAL) 05/13/23 13:45 Ur Leukocyte Esterase Negative (NEGATIVE) 05/13/23 13:45 Urine RBC 5-10 /HPF (0-3) A 05/13/23 13:45 Urine WBC 0-2 /HPF (0-5) 05/13/23 13:45 Ur Squamous Epith Cells Rare /HPF (NEGATIVE) 05/13/23 13:45 Urine Bacteria Trace /HPF (NEGATIVE) 05/13/23 13:45 Ur Culture Indicated? No/not indicated 05/13/23 13:45 SARS-CoV-2 (PCR) Negative (NEGATIVE) 05/14/23 12:35 Influenza Type A (PCR) Negative (NEGATIVE) 05/14/23 12:35 Influenza Type B (PCR) Negative (NEGATIVE) 05/14/23 12:35 RSV (PCR) Negative (NEGATIVE) 05/14/23 12:35 - Plan (1) COPD exacerbation Status: Acute Plan: SUPPLEMENTAL OXYGEN, NORMAL SALINE AT KVO, SOLU-MEDROL 40MG IV Q8H, DUONEBS Q4H, PULMICORT NEBS BID, LOVENOX 40MG SC DAILY, OTBS ACHS, HUMULIN R SLIDING SCALE, ECOTRIN 81MG HS, ACTOS 30MG DAILY, SIMVASTATIN 40MG HS, ROBITUSSIN DM 10ML QID, VSL 2 CAPS DAILY, ZOCOR 20MG HS. TODAY, WE WILL ADD MUCOMYST 200MG PO BID X 3 DAYS, ZOSYN 3.375G IV TID, RIFAMPIN 300MG BID, AND GENTAMYCIN OINTMENT BID. (2) Acute bronchitis Status: Acute Qualifiers: Bronchitis organism: unspecified organism Plan: MUCOMYST 200MG PO BID X 3 DAYS, ZOSYN 3.375G IV TID, RIFAMPIN 300MG BID (3) CHF (congestive heart failure) Status: Acute Qualifiers: Heart failure type: unspecified Heart failure chronicity: acute on chronic Qualified Code(s): I50.9 - Heart failure, unspecified (4) Venous stasis ulcers of both lower extremities Status: Acute Plan: OBTAIN BILATERAL LOWER EXTREMITY CTA WITH AND WITHOUT CONTRAST (5) Hyperlipidemia Status: Chronic Qualifiers: Hyperlipidemia type: mixed hyperlipidemia Qualified Code(s): E78.2 - Mixed hyperlipidemia Plan: CONTINUE HOME MEDS (6) Hypertension Status: Chronic Qualifiers: Hypertension type: primary hypertension Plan: CONTINUE HOME MEDS (7) Diabetes mellitus Status: Chronic Qualifiers: Diabetes mellitus type: type 2 Diabetes mellitus ferry terminal supervisor insulin use: with ferry terminal supervisor use Diabetes mellitus complication status: with other specified complication Qualified Code(s): E11.69 - Type 2 diabetes mellitus with other specified complication; Z79.4 - residential (current) use of insulin Plan: OTBS ACHS, HUMULIN R SLIDING SCALE, CONTINUE HOME MEDS
[2023-05-17] MEDS: DUONEB 0.5 MG/3 MG (3 mL) NEB SCH ×6 (00:31→21:00)
[2023-05-17 05:21] LABS: BASOPHILS % (AUTO) 0 % (0.2-1.0); HEMATOCRIT 33.7 % (42.0-54.0); HEMOGLOBIN 11.6 g/dL (13.5-18.0); LYMPHOCYTES # (AUTO) 0.1 X10^3/uL (1.3-2.9); LYMPHOCYTES % (AUTO) 1.3 % (21.0-51.0); MEAN CORPUSCULAR HEMOGLOBIN 30.3 pg (27.0-34.0); MEAN CORPUSCULAR HGB CONC 34.5 g/dL (33.0-35.0); MEAN CORPUSCULAR VOLUME 87.9 fL (80.0-100.0); MEAN PLATELET VOLUME 9.2 fL (7.4-11.0); MONOCYTES # (AUTO) 0.4 x10^3/uL (0.3-0.8); MONOCYTES % (AUTO) 4.3 % (0.0-13.0); NEUTROPHILS # (AUTO) 9.3 x10^3/uL (2.2-4.8); NEUTROPHILS % (AUTO) 94.4 % (42.0-75.0); PLATELET COUNT 145 X10^3/uL (150.0-450.0); RED BLOOD COUNT 3.83 X10^6/uL (4.7-6.0); RED CELL DISTRIBUTION WIDTH 14.7 % (11.6-16.5); WHITE BLOOD COUNT 9.9 X10^3/uL (3.6-10.0)
[2023-05-17] MEDS: ZOSYN VIAL 3.375 GRAMS 3.375 G in NS 100 ML IV 100 ML IV SCH ×3 (05:35→21:16)
[2023-05-17] MEDS: SOLU-Medrol 40 MG VIAL IVP SCH ×3 (05:35→21:16)
[2023-05-17 05:40] LABS: ALBUMIN 2.9 g/dL (3.4-5.0); CALCIUM 7.7 mg/dL (8.5-10.1); CARBON DIOXIDE 35.1 mmol/L (21-32); COR CA(FOR HYPOALB) 8.6 mg/dL (8.5-10.1); CREATININE 1.49 mg/dL (0.70-1.30); POTASSIUM 4.5 mmol/L (3.5-5.1)
[2023-05-17] MEDS: NovoLIN R (or HumuLIN R) SUBCUT PRN ×4 (05:42→21:12)
[2023-05-17 06:00] LABS: BAND NEUTROPHILS % 2 % (0-10); PLATELET MORPHOLOGY COMMENT NORMAL (NORMAL)
--- NOTE | 2023-05-17 07:25 | RAD ---
HISTORYEXACERBATION COPD, CHF, SOBSTUDYCHEST, 1 [id number]/19/2023.TECHNIQUEPA or AP view of the chestFINDINGSPatient's chin obscures portions of the lung apices. Cardiac and mediastinal contours are within normal limits. Similar appearing patchy right base opacity. Blunted right costophrenic sulcus. No pneumothorax.IMPRESSIONBlunted right costophrenic sulcus can be seen with small pleural effusion or pleuro-parynchemal scarring. Associated right base patchy opacity may represent atelectasis or infiltrate. Recommend follow up imaging to document resolution after appropriate treatment.Electronically signed by: Rojas Pike (May 17, 2023 07:22:36)
--- NOTE | 2023-05-17 07:43 | RAD ---
HISTORYShortness of breathSTUDYChest AP [id number]/17/2023FINDINGSHear t is enlarged. No congestive heart failure is noted. Aorta is calcified and mildly ectatic. Lungs are well inflated and free of acute infiltrates. No definite pleural effusions are identified. Bony thorax is unremarkable.IMPRESSIONCardiomegaly without congestive heart failureNo definite infiltratesElectronically signed by: LUPE CONTI (May 17, 2023 07:43:03)
[2023-05-17] MEDS ORDERED: MUCOMYST (RESPIRATORY USE ONLY) ONE (08:54)
[2023-05-17] MEDS ORDERED: MUCOMYST 20% 200 MG/ML NEB SCH (09:00)
[2023-05-17] MEDS: VSL#3 PO SCH (09:03)
[2023-05-17] MEDS: ASPIRIN EC 81 MG PO SCH (09:03)
[2023-05-17] MEDS: LOVENOX INJ 40 MG SYR SC SCH (09:03)
[2023-05-17] MEDS: MOBIC TAB 15 MG PO SCH (09:03)
[2023-05-17] MEDS: GENTAMICIN TOPICAL OINT TOP SCH ×2 (09:03→20:46)
[2023-05-17] MEDS: RIFADIN PO SCH ×2 (09:03→20:46)
[2023-05-17] MEDS: ROBITUSSIN DM PO SCH ×4 (09:03→20:46)
[2023-05-17] MEDS: ACTOS PO SCH (09:03)
[2023-05-17] MEDS: PULMICORT NEB TX 0.5 MG NEB SCH ×2 (09:03→21:00)
[2023-05-17] MEDS: NS 1,000 ML IV 1,000 ML IV SCH (11:08)
--- NOTE | 2023-05-17 12:08 | CT ---
CTA OF THE PELVIS AND BILATERAL LOWER EXTREMITY RUNOFF WITHOUT AND WITH CONTRASTCLINICAL INDICATION: ischemiaTECHNIQUE: Written informed consent was obtained. Noncontrast CTA images were initially obtained through the chest, abdomen pelvis, lower extremities. Non-gated spiral axial images of the lower thorax, abdomen, pelvis and lower extremities were obtained with nonionic intravenous contrast. 3D reconstructions were performed. Dose reduction techniques including Automated Exposure Control (AEC) and adjustment of mA and kV were utlized.COMPARISON:NoneFINDINGS:VASCULAR: .br.br EXTREMITY:Right Common Iliac Artery:No significant stenosis.Right Internal Iliac Artery:No significant stenosis.Right External Iliac Artery:No significant stenosis.Right Common Femoral Artery:No significant stenosis.Right Profunda Femoris Artery:No significant stenosis.Right Superficial Femoral Artery:Multifocal regions of up to 50 percent stenosis.Right Popliteal Artery:Approximately 75 percent stenosis.Right Anterior Tibial Artery: No significant stenosis. Crosses the ankle to supply the dorsalis pedis artery.Right Tibioperoneal Trunk:No significant stenosis.Right Posterior Tibial Artery:No significant stenosis. Crosses the ankle to supply the plantar arch.Right Peroneal Artery:No significant stenosis.LEFT PELVIS/LOWER EXTREMITY:Left Common Iliac Artery:No significant stenosis.Left Internal Iliac Artery:No significant stenosis.Left External Iliac Artery:No significant stenosis.Left Common Femoral Artery:No significant stenosis.Left Profunda Femoris Artery:No significant stenosis.Left Superficial Femoral Artery:Multifocal regions of up to 75 percent stenosis.Left Popliteal Artery:Approximately 75 percent stenosis.Left Anterior Tibial Artery:No significant stenosis. Crosses the ankle to supply the dorsalis pedis artery.Left Tibioperoneal Trunk:No significant stenosis.Left Posterior Tibial Artery:No significant stenosis. Crosses the ankle to supply the plantar arch.Left Peroneal Artery:No significant stenosis.CTA pelvis with intravenous contrast: No bowel obstruction or inflammation . No abnormal appearing mesenteric or retroperitoneal lymph nodes . No free fluid or fluid collections .Bladder is normal. Prostate unremarkable. No pelvic adenopathy or fluid collections.No aggressive osseous lesions.IMPRESSION:1. Multifocal SFA stenosis up to 50 percent on the right and 75 percent on the left. Bilateral 75 percent popliteal artery stenosis.Electronically signed by: ADE SIMPSON (May 17, 2023 12:05:48)
[2023-05-17] MEDS ORDERED: CATAPRES TAB 0.1 MG PO ONE (12:40)
[2023-05-17] MEDS: ZOCOR TAB 40 MG PO SCH (20:46)
[2023-05-18] MEDS: DUONEB 0.5 MG/3 MG (3 mL) NEB SCH ×7 (00:30→21:18)
[2023-05-18 05:17] LABS: BASOPHILS % (AUTO) 0 % (0.2-1.0); HEMATOCRIT 34.6 % (42.0-54.0); HEMOGLOBIN 11.9 g/dL (13.5-18.0); LYMPHOCYTES # (AUTO) 0.2 X10^3/uL (1.3-2.9); LYMPHOCYTES % (AUTO) 2.4 % (21.0-51.0); MEAN CORPUSCULAR HGB CONC 34.4 g/dL (33.0-35.0); MEAN CORPUSCULAR VOLUME 87.3 fL (80.0-100.0); MEAN PLATELET VOLUME 9.1 fL (7.4-11.0); MONOCYTES # (AUTO) 0.5 x10^3/uL (0.3-0.8); MONOCYTES % (AUTO) 5.4 % (0.0-13.0); NEUTROPHILS # (AUTO) 8.4 x10^3/uL (2.2-4.8); NEUTROPHILS % (AUTO) 92.2 % (42.0-75.0); PLATELET COUNT 151 X10^3/uL (150.0-450.0); RED BLOOD COUNT 3.97 X10^6/uL (4.7-6.0); WHITE BLOOD COUNT 9.2 X10^3/uL (3.6-10.0)
[2023-05-18 05:33] LABS: ALANINE AMINOTRANSFERASE 45 Units/L (12-78); ALKALINE PHOSPHATASE 68 Units/L (46-116); ASPARTATE AMINO TRANSFERASE 20 Units/L (15-37); BLOOD UREA NITROGEN 47 mg/dL (7-18); CALCIUM 7.9 mg/dL (8.5-10.1); CARBON DIOXIDE 36.3 mmol/L (21-32); CHLORIDE 100 mmol/L (98-107); COR CA(FOR HYPOALB) 8.7 mg/dL (8.5-10.1); COR NA(FOR HYPERGLY) 141 mmol/L (136-145); GLUCOSE 194 mg/dL (65-99); SODIUM 139 mmol/L (136-145); TOTAL PROTEIN 6.1 g/dL (6.4-8.2); eGFR NON BLACK RACES 53 (>60)
[2023-05-18] MEDS: ZOSYN VIAL 3.375 GRAMS 3.375 G in NS 100 ML IV 100 ML IV SCH ×3 (05:36→21:22)
[2023-05-18] MEDS: SOLU-Medrol 40 MG VIAL IVP SCH ×2 (05:36→13:51)
[2023-05-18 05:55] LABS: PLATELET MORPHOLOGY COMMENT NORMAL (NORMAL)
[2023-05-18] MEDS: NovoLIN R (or HumuLIN R) SUBCUT PRN ×3 (06:05→21:26)
--- NOTE | 2023-05-18 08:14 | RAD ---
HISTORYShortness of breathSTUDYChest AP [id number]/20/2023FINDINGSHear t size is normal. Latoya are normal. Aorta is calcified and mildly ectatic. Lungs are hyperinflated. Increasing abnormal parenchymal density is present in the right lung base suggestive of pneumonia. There is likely an associated right pleural effusion. Remainder of the lung overton are clear. No pneumothorax identified. Bony thorax is unremarkable.IMPRESSIONIncreasing right basilar infiltrate likely associated with a right pleural effusionCardiomegaly without congestive heart failureElectronically signed by: LUPE CONTI (May 18, 2023 08:12:45)
[2023-05-18] MEDS: ACTOS PO SCH (08:42)
[2023-05-18] MEDS: VSL#3 PO SCH (08:42)
[2023-05-18] MEDS: LOVENOX INJ 40 MG SYR SC SCH (08:42)
[2023-05-18] MEDS: GENTAMICIN TOPICAL OINT TOP SCH ×2 (08:42→21:20)
[2023-05-18] MEDS: ASPIRIN EC 81 MG PO SCH (08:42)
[2023-05-18] MEDS: ROBITUSSIN DM PO SCH ×4 (08:42→21:25)
[2023-05-18] MEDS: RIFADIN PO SCH ×2 (08:42→21:25)
[2023-05-18] MEDS: MOBIC TAB 15 MG PO SCH (08:42)
[2023-05-18] MEDS: PULMICORT NEB TX 0.5 MG NEB SCH ×2 (09:00→21:18)
[2023-05-18] MEDS ORDERED: XANAX PO ONE (13:51)
[2023-05-18] MEDS ORDERED: LASIX IVP ONE (13:51)
--- NOTE | 2023-05-18 14:44 | EKG ---
Test Reason : shortness of breath Blood Pressure : */* mmHG Vent. Rate : 75 BPM Atrial Rate : * BPM P-R Int : * ms QRS Dur : 92 ms QT Int : 386 ms P-R-T Axes : * 21 51 degrees QTc Int : 431 ms Atrial fibrillation Abnormal ECG When compared with ECG of 13-MAY-2023 13:29, No significant change was found Confirmed by Luis E Olson ([id number]) on 05/18/2023 6:55:02 PM Referred By: Confirmed By: Luis E Olson
[2023-05-18 14:49] LABS: ABG BASE EXCESS 6.7 mmol/L (-2.0-2.0)
[2023-05-18 14:50] LABS: ABG HCO3 30.4 mmol/L (22-26)
[2023-05-18 14:51] LABS: ABG ALLEN TEST POS
--- NOTE | 2023-05-18 18:05 | PCM.PROG ---
Progress Note - Progress Note for Day of Date of Exam: 05/18/23 - Subjective Subjective: IS CURRENTLY INPATIENT STATUS FOR TREATMENT OF COPD EXACERBATION, CONGESTION HEART FAILURE, AND PERIPHERAL VASCULAR DISEASE WITH MULTIPLE VENOUS STASIS ULCERS. HE HAS A PMH OF HTN, COPD, DM II, DYSLIPIDEMIA, LEFT HIP REPLACEMENT, AND BILATERAL CATARACT SURGERY. TODAY, HE IS ALERT AND ORIENTED, LYING IN BED ON MORNING ROUNDS. HE CONTINUES WITH INTERMITTENT SHORTNESS OF BREATH, A PRODUCTIVE COUGH, AND BILATERAL LOWER EXTREMITY PAIN. ON EXAMINATION. PT HAD CTA OF LOWER EXTREMITIES OBTAINED AND RESULTS REVIEWED WITH PT AND DISCUSSED FOLLOWING UP WITH VASCULAR. PLANNED TO DC PT HOME TODAY WITH ANTIBIOTICS AND WOUND CARE. UPON AMBULATION TO RESTROOM PT CO SEVERE SOB. PT HAD EKG WITH AFIB, CONTROLLED RATE, DDIMER, CARDIAC EZYMES AND DDIMER OBTAINED. PT WAS GIVEN LASIX 40 IV X 1 DOSE. PLAN MONITOR OVERNIGHT AND REPEAT AM LABS AND CXR, REPEAT SERIAL CE. - Past Medical Family Social History Past Med/Fam/Surg Hx: No changes since H&P Allergies: Allergies No Known Drug Allergies Allergy (Verified 05/13/23 17:11) - Review of Systems ROS: No change since H&P - Vital Signs and I&O's Vital Signs: Vital Signs Temperature 97.8 F Temperature 97.6 F Pulse Rate [Left] 68 Pulse Rate [Left] 67 Respiratory Rate 18 Respiratory Rate 18 Blood Pressure [Left Arm] 144/66 Blood Pressure [Left Arm] 158/74 O2 Sat by Pulse Oximetry 98 O2 Sat by Pulse Oximetry 97 05/18/23 16:00 Temperature 97.8 F Temperature Source Oral Pulse Rate [Left] 68 Respiratory Rate 18 O2 Sat by Pulse Oximetry 98 Oxygen Delivery Method Nasal Cannula Oxygen Flow Rate 2 Blood Pressure [Left Arm] 144/66 Blood Pressure Mean [Left Arm] 92 Blood Pressure Source [Left Arm] Automatic Cuff Intake and Output: Intake & Output 05/16/23 05/17/23 05/18/23 05/19/23 11:59 11:59 11:59 11:59 Intake Total 2478 / 2478 1691 / 1691 1960 / 1960 903 / 903 Output Total 2320 / 2320 2275 / 2275 1450 / 1450 900 / 900 Balance 158 / 158 -584 / -584 510 / 510 3 / 3 - Physical Exam Oriented: Normal Eyes: Normal Ear: Normal Nose: Normal Throat: Normal Respiratory: Diminished, Wheezes Cardiovascular: Normal, Edema (BILATERAL LOWER EXTREMITIES ) : Normal Auscultation: Bowel Sounds: Normal Tenderness: Normal Skin: Decreased Turgur, Red, Wound (BILATERAL LOWER EXTREMITY ULCERATION ) Musculoskeletal: Normal, Right, Left, Leg, Back:Lumbar, Tender Psychiatric: Anxiety Affect: Anxious Speech Pattern: Clear, Appropriate - Laboratory and Diagnostics Result Diagrams: 05/18/23 04:23 05/18/23 04:23 Labs: 05/13/23 19:24 Leg - Right Wound Gram Stain - Final 05/13/23 19:24 Leg - Right Wound Culture - Final Staphylococcus Aureus 05/13/23 19:24 Leg - Left Wound Gram Stain - Final 05/13/23 19:24 Leg - Left Wound Culture - Final Staphylococcus Aureus Laboratory WBC 9.2 X10^3/uL (3.6-10.0) 05/18/23 04:23 RBC 3.97 X10^6/uL (4.7-6.0) L 05/18/23 04:23 Hgb 11.9 g/dL (13.5-18.0) L 05/18/23 04:23 Hct 34.6 % (42.0-54.0) L 05/18/23 04:23 MCV 87.3 fL (80.0-100.0) 05/18/23 04:23 MCH 30.0 pg (27.0-34.0) 05/18/23 04:23 MCHC 34.4 g/dL (33.0-35.0) 05/18/23 04:23 RDW 15.0 % (11.6-16.5) 05/18/23 04:23 Plt Count 151 X10^3/uL (150.0-450.0) 05/18/23 04:23 Plt Count Comment Adequate (ADEQUATE) 05/18/23 04:23 MPV 9.1 fL (7.4-11.0) 05/18/23 04:23 Neut % (Auto) 92.2 % (42.0-75.0) H 05/18/23 04:23 Lymph % (Auto) 2.4 % (21.0-51.0) L 05/18/23 04:23 [place] % (Auto) 5.4 % (0.0-13.0) 05/18/23 04:23 Eos % (Auto) 0.0 % (0.9-2.9) L 05/18/23 04:23 Baso % (Auto) 0 % (0.2-1.0) L 05/18/23 04:23 Neut # (Auto) 8.4 x10^3/uL (2.2-4.8) H 05/18/23 04:23 Lymph # (Auto) 0.2 X10^3/uL (1.3-2.9) L 05/18/23 04:23 [place] # (Auto) 0.5 x10^3/uL (0.3-0.8) 05/18/23 04:23 Eos # (Auto) 0.0 x10^3/uL (0.0-0.2) 05/18/23 04: Baso # (Auto) 0.0 X10^3/uL (0.0-0.1) 05/18/23 04:23 Absolute Nucleated RBC 0.0 /100WBC 05/18/23 04:23 Total Counted 100 05/18/23 04:23 Neutrophils % (Manual) 93 % (39-76) H 05/18/23 04:23 Band Neutrophils % 2 % (0-10) 05/17/23 04:30 Lymphocytes % (Manual) 3 % (13-43) L 05/18/23 04:23 Monocytes % (Manual) 4 % (4-9) 05/18/23 04:23 Plt Morphology Comment Normal (NORMAL) 05/18/23 04:23 RBC Morphology Normal (NORMAL) 05/18/23 04:23 D-Dimer 0.71 ug/ml (0.0-0.57) H 05/18/23 14:07 Sample Site Lr 05/18/23 13:51 ABG pH 7.500 (7.35-7.45) H 05/18/23 13:51 ABG pCO2 39.0 mmHg (35.0-45.0) 05/18/23 13:51 ABG pO2 140.0 mmHg (80.0-100.0) H 05/18/23 13:51 ABG HCO3 30.4 mmol/L (22-26) H* 05/18/23 13:51 ABG O2 Saturation 99.0 % (90-100) 05/18/23 13:51 ABG Base Excess 6.7 mmol/L (-2.0-2.0) H 05/18/23 13:51 [place] Test Pos 05/18/23 13:51 A-a Gradient 11.0 mmHg 05/18/23 13:51 FiO2 28.0 05/18/23 13:51 Blood Gas Comments Yodit well 05/18/23 13:51 Sodium 139 mmol/L (136-145) 05/18/23 04:23 Corrected Sodium 141 mmol/L (136-145) 05/18/23 04:23 Potassium 4.0 mmol/L (3.5-5.1) 05/18/23 04:23 Chloride 100 mmol/L (98-107) 05/18/23 04:23 Carbon Dioxide 36.3 mmol/L (21-32) H 05/18/23 04:23 BUN 47 mg/dL (7-18) H 05/18/23 04:23 Creatinine 1.40 mg/dL (0.70-1.30) H 05/18/23 04:23 Est GFR (MDRD) Af Amer > 60 (>60) 05/18/23 04:23 Est GFR (MDRD) Non-Af 53 (>60) L 05/18/23 04:23 Glucose 194 mg/dL (65-99) H 05/18/23 04:23 POC Glucose (mg/dL) 289 mg/dL (65-99) H 05/18/23 16:32 Hemoglobin A1c 8.0 % 05/14/23 04:21 Calcium 7.9 mg/dL (8.5-10.1) L 05/18/23 04:23 Corrected Calcium 8.7 mg/dL (8.5-10.1) 05/18/23 04:23 Total Bilirubin 1.00 mg/dL (0.2-1.0) 05/18/23 04:23 AST 20 Units/L (15-37) 05/18/23 04:23 ALT 45 Units/L (12-78) 05/18/23 04:23 Alkaline Phosphatase 68 Units/L (46-116) 05/18/23 04:23 Troponin I High Sens 37.0 ng/L (4.0-60.0) 05/18/23 14:07 B-Natriuretic Peptide 39.8 pg/mL (0-79) 05/18/23 04:23 Total Protein 6.1 g/dL (6.4-8.2) L 05/18/23 04:23 Albumin 3.0 g/dL (3.4-5.0) L 05/18/23 04:23 Globulin 3.1 g/dL (2.5-4.5) 05/18/23 04:23 Albumin/Globulin Ratio 1.0 Ratio (1.1-2.1) L 05/18/23 04:23 Specimen Type Random urine 05/13/23 13:45 Urine Color Yellow (YELLOW) 05/13/23 13:45 Urine Appearance Clear (CLEAR) 05/13/23 13:45 Urine pH 7.0 (5.0 - 8.0) 05/13/23 13:45 Ur Specific [place] 1.010 (1.000-1.030) 05/13/23 13:45 Urine Protein 3+ (NEGATIVE) 05/13/23 13:45 Urine Glucose (UA) 2+ (NEGATIVE) 05/13/23 13:45 Urine Ketones Negative (NEGATIVE) 05/13/23 13:45 Urine Blood 2+ (NEGATIVE) 05/13/23 13:45 Urine Nitrite Negative (NEGATIVE) 05/13/23 13:45 Urine Bilirubin Negative (NEGATIVE) 05/13/23 13:45 Urine Urobilinogen Normal (NORMAL) 05/13/23 13:45 Ur Leukocyte Esterase Negative (NEGATIVE) 05/13/23 13:45 Urine RBC 5-10 /HPF (0-3) A 05/13/23 13:45 Urine WBC 0-2 /HPF (0-5) 05/13/23 13:45 Ur Squamous Epith Cells Rare /HPF (NEGATIVE) 05/13/23 13:45 Urine Bacteria Trace /HPF (NEGATIVE) 05/13/23 13:45 Ur Culture Indicated? No/not indicated 05/13/23 13:45 SARS-CoV-2 (PCR) Negative (NEGATIVE) 05/14/23 12:35 Influenza Type A (PCR) Negative (NEGATIVE) 05/14/23 12:35 Influenza Type B (PCR) Negative (NEGATIVE) 05/14/23 12:35 RSV (PCR) Negative (NEGATIVE) 05/14/23 12:35 - Plan (1) COPD exacerbation Status: Acute Plan: RESP PANEL SWAB ON ADMISSION. CXR Q AM. RESP CONSULT WITH SPUTUM CULTURE. SUPPLEMENTAL O2, ABG. CARDIAC MONITORING, I&OS. BS AND BP CONTROL. WOUND CULTURES OBTAINED ON ADMISSION (2) Hypoxia Status: Acute (3) CHF (congestive heart failure) Status: Acute Qualifiers: Heart failure type: unspecified Heart failure chronicity: acute on chronic Qualified Code(s): I50.9 - Heart failure, unspecified (4) Venous stasis ulcers of both lower extremities Status: Acute Plan: OBTAIN BILATERAL LOWER EXTREMITY CTA WITH AND WITHOUT CONTRAST (5) Hypertension Status: Chronic Qualifiers: Hypertension type: primary hypertension Plan: CONTINUE HOME MEDS
[2023-05-18] MEDS: ZOCOR TAB 40 MG PO SCH (21:22)
[2023-05-19] MEDS: DUONEB 0.5 MG/3 MG (3 mL) NEB SCH ×4 (00:50→13:13)
--- NOTE | 2023-05-19 01:33 | EKG ---
Test Reason : a-fib Blood Pressure : */* mmHG Vent. Rate : 80 BPM Atrial Rate : 271 BPM P-R Int : * ms QRS Dur : 96 ms QT Int : 378 ms P-R-T Axes : * 47 58 degrees QTc Int : 435 ms Atrial flutter with variable AV block Abnormal ECG When compared with ECG of 18-MAY-2023 14:34, Atrial flutter has replaced Atrial fibrillation Confirmed by Luis E Olson ([id number]) on 05/19/2023 8:42:29 AM Referred By: Confirmed By: Luis E Olson
[2023-05-19 02:46] LABS: BASOPHILS % (AUTO) 0.2 % (0.2-1.0); EOSINOPHILS % (AUTO) 0.2 % (0.9-2.9); HEMATOCRIT 36.3 % (42.0-54.0); HEMOGLOBIN 12.3 g/dL (13.5-18.0); LYMPHOCYTES # (AUTO) 0.6 X10^3/uL (1.3-2.9); LYMPHOCYTES % (AUTO) 6.8 % (21.0-51.0); MEAN CORPUSCULAR HEMOGLOBIN 29.9 pg (27.0-34.0); MEAN CORPUSCULAR HGB CONC 33.9 g/dL (33.0-35.0); MEAN PLATELET VOLUME 8.7 fL (7.4-11.0); MONOCYTES # (AUTO) 0.7 x10^3/uL (0.3-0.8); MONOCYTES % (AUTO) 7.9 % (0.0-13.0); NEUTROPHILS # (AUTO) 8.1 x10^3/uL (2.2-4.8); NEUTROPHILS % (AUTO) 84.9 % (42.0-75.0); PLATELET COUNT 150 X10^3/uL (150.0-450.0); RED BLOOD COUNT 4.13 X10^6/uL (4.7-6.0); WHITE BLOOD COUNT 9.5 X10^3/uL (3.6-10.0)
[2023-05-19 02:56] LABS: CALCIUM 8.2 mg/dL (8.5-10.1); CARBON DIOXIDE 40.1 mmol/L (21-32); CREATININE 1.64 mg/dL (0.70-1.30); POTASSIUM 3.8 mmol/L (3.5-5.1)
[2023-05-19] MEDS: ZOSYN VIAL 3.375 GRAMS 3.375 G in NS 100 ML IV 100 ML IV SCH (06:13)
[2023-05-19] MEDS: PULMICORT NEB TX 0.5 MG NEB SCH (09:01)
--- NOTE | 2023-05-19 09:05 | RAD ---
HISTORYShortness of breathSTUDYChest PA and [id number]/21/2023FINDINGSHeart is enlarged. No congestive heart failure is noted. Aorta is calcified and mildly ectatic. Right basilar infiltrate is unchanged. There is likely some right pleural fluid present. Remainder of the lung overton are clear. No left pleural effusion is identified. Bony thorax is unremarkable.IMPRESSIONCardiomegaly without congestive heart failureNo change right basilar lung infiltrate, small right pleural effusionElectronically signed by: LUPE CONTI (May 19, 2023 09:04:11)
[2023-05-19] MEDS: LOVENOX INJ 40 MG SYR SC SCH (09:32)
[2023-05-19] MEDS: GENTAMICIN TOPICAL OINT TOP SCH (09:32)
[2023-05-19] MEDS: RIFADIN PO SCH (09:32)
[2023-05-19] MEDS: ACTOS PO SCH (09:32)
[2023-05-19] MEDS: ROBITUSSIN DM PO SCH ×2 (09:32→13:18)
[2023-05-19] MEDS: ASPIRIN EC 81 MG PO SCH (09:32)
[2023-05-19] MEDS: VSL#3 PO SCH (09:32)
[2023-05-19] MEDS: MOBIC TAB 15 MG PO SCH (09:32)
[2023-05-19] MEDS ORDERED: MILK OF MAGNESIA PO PRN (10:52)
[2023-05-19 12:57] VITALS: BP 148/67; PULSE 100; RESP 22; TEMP 97; O2SAT 94
[2023-05-19] MEDS ORDERED: COLACE CAP 100 MG PO SCH (21:00)
== END 2023-05-19 14:20 | disposition home health service (06) | DRG 191 ==
LOC: ER 12:50 → MED/SURG 16:19
PROVIDERS: ADMIT Internal Medicine; ATTEND Internal Medicine
DX: I50.9 Heart failure, unspecified; I48.91 Unspecified atrial fibrillation; B95.61 Methicillin susceptible Staphylococcus aureus infection as the cause of diseases classified elsewhere; J44.1 Chronic obstructive pulmonary disease with (acute) exacerbation; E11.65 Type 2 diabetes mellitus with hyperglycemia; L97.919 Non-pressure chronic ulcer of unspecified part of right lower leg with unspecified severity; R06.02 Shortness of breath; I11.0 Hypertensive heart disease with heart failure; L97.929 Non-pressure chronic ulcer of unspecified part of left lower leg with unspecified severity; Z20.822 Contact with and (suspected) exposure to COVID-19; I25.10 Atherosclerotic heart disease of native coronary artery without angina pectoris; B96.1 Klebsiella pneumoniae [K. pneumoniae] as the cause of diseases classified elsewhere; I83.009 Varicose veins of unspecified lower extremity with ulcer of unspecified site